=== PATIENT | female | born 1990 | race Caucasian/White ===

== ENCOUNTER 2023-06-21 13:48 | Outpatient (OUT) | payer OTHER, SELFPAY ==
--- NOTE | 2023-06-21 13:49 | US_ITS ---
[address] [address] Patient Name: NORY ALONZO MRN: [id number] date: 1990 Sex: F Assigned Patient Location: [facility] Current Patient Location: [facility] Accession/Order Number: [id number] Exam Date: 06/21/2023 13:50 Report Date: 06/21/2023 15:20 At the request of: KAVITHA LANG Procedure: US OB transvaginal EXAMINATION: US OB transvaginal HISTORY: MISSED MENSES COMPARISON: No relevant comparison available. FINDINGS: GESTATIONAL SAC: Present and normal appearing. YOLK SAC: Present and normal appearing. POLE: Present and normal appearing. CARDIAC: Present. UTERUS: Normal size and appearance. OVARIES: Right: Normal. Left: Not seen. CERVIX: 4.2 cm in length and closed. CUL-DE-SAC: Normal. OTHER: None. AGE BY LMP: 11 weeks 3 days DIANNE BY LMP: 01/07/2024 AGE BY US CRL: 10 weeks 2 days DIANNE BY US CRL: 01/15/2024 US/US OB transvaginal IMPRESSION: 1. Single live intrauterine . Electronically authenticated by: THERON NIEVES Date: 06/21/2023 15:20
== END 2023-06-21 13:49 | disposition home or self-care (01) ==
LOC: NOMS 13:48
PROVIDERS: Visit Provider Obstetrics & Gynecology
DX: Z34.91 Encounter for supervision of normal pregnancy, unspecified, first trimester (principal); Z3A.10 10 weeks gestation of pregnancy; N92.6 Irregular menstruation, unspecified
CPT/HCPCS: 76817

== ENCOUNTER 2023-06-27 12:08 | Outpatient (OUT) | payer OTHER, SELFPAY ==
[2023-06-27 12:52] LABS: Basophils Percent Auto 0.3 % (0.2-2.0); Eosinophils Absolute Auto 0.1 10^3/uL (0.0-0.7); Eosinophils Percent Auto 1.1 % (0.9-7.0); Hematocrit 34.6 % (36.0-48.0); Hemoglobin 11.9 g/dL (12.0-16.0); Immature Granulocytes Abs Auto 0.01 10^3/uL (0.00-0.03); Immature Granulocytes Pct Auto 0.2 % (0.0-0.5); Lymphocytes Absolute Auto 1.7 10^3/uL (1.2-3.8); Lymphocytes Percent Auto 27.9 % (20.5-60.0); Mean Corpuscular HGB Conc 34.4 g/dL (29.9-35.2); Mean Corpuscular Hemoglobin 30.6 pg (26.7-34.0); Mean Corpuscular Volume 88.9 fL (81.0-99.0); Mean Platelet Volume 10.6 fL (9.5-13.5); Monocytes Absolute Auto 0.4 10^3/uL (0.3-0.8); Monocytes Percent Auto 6.6 % (1.7-12.0); Neutrophils Percent Auto 63.9 % (43.0-75.0); Platelet Count 212 10^3/uL (150-450); Red Blood Count 3.89 10^6/uL (4.20-5.40); Red Cell Distribution Width 11.9 % (11.0-15.0); White Blood Count 6.2 10^3/uL (4.0-11.0)
[2023-06-27 13:21] LABS: Estimated Average Glucose 100 mg/dL; Glycohemoglobin A1C 5.1 % (4.5-6.2)
[2023-06-28 06:09] LABS: Rubella Antibodies, IgG 5.08 index (Immune >0.99)
[2023-06-28 08:12] LABS: HBsAg Screen Negative (Negative); HCV Ab Non Reactive (Non Reactive); HIV Ab/p24 Ag Screen Non Reactive (Non Reactive)
[2023-06-28 11:11] LABS: Rapid Plasma Reagin, Quant Non Reactive titer (NonRea<1:1)
== END 2023-06-27 12:09 | disposition home or self-care (01) ==
LOC: LAB 12:09
PROVIDERS: Visit Provider Obstetrics & Gynecology
DX: N92.6 Irregular menstruation, unspecified (principal)
CPT/HCPCS: 36415; 83036; 85025; 86592; 86762; 86803; 86850; 86900; 86901; 87086; 87340; 87389

== ENCOUNTER 2023-07-19 20:07 | Outpatient (REF) | payer OTHER, SELFPAY ==
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
[2023-07-24 13:12] LABS: Age Gdln ACOG Testing Note (.); HPV Aptima Negative (Negative); IGP, Aptima HPV, rfx 16/18,45 Note (.)
== END 2023-07-19 20:08 | disposition home or self-care (01) ==
LOC: LAB 20:07
PROVIDERS: Visit Provider Obstetrics & Gynecology
DX: Z01.419 Encounter for gynecological examination (general) (routine) without abnormal findings (principal)
CPT/HCPCS: 87624; G0145

== ENCOUNTER 2023-08-29 11:51 | Outpatient (OUT) | payer OTHER, SELFPAY | END 2023-08-29 11:52 | disposition home or self-care (01) | LOC: LAB 11:54 | PROVIDERS: Visit Provider Obstetrics & Gynecology | DX: Z34.92 Encounter for supervision of normal pregnancy, unspecified, second trimester (principal) | CPT/HCPCS: 36415; 82105 ==

== ENCOUNTER 2023-08-29 13:05 | Outpatient (OUT) | payer OTHER, SELFPAY ==
--- NOTE | 2023-08-29 13:07 | US_ITS ---
[address] [address] Patient Name: NORY ALONZO MRN: [id number] date: 1990 Sex: F Assigned Patient Location: [facility] Current Patient Location: [facility] Accession/Order Number: [id number] Exam Date: 08/29/2023 13:07 Report Date: 08/29/2023 14:15 At the request of: MELLO BURGER Procedure: US OB anatomy EXAMINATION: US OB anatomy, US OB cervical length HISTORY: ANATOMY COMPARISON: 06/21/2023 TECHNIQUE: Transabdominal sonographic examination was performed for obstetrical and evaluation. FINDINGS: Number: 1 Heart Rate: 143.0 bpm H.B. /min Amniotic Fluid Volume: Subjectively normal position: Variable Placental Location: POSTERIOR , placental edge is 4.3 cm from the cervical os Cervix Length: 5.3 cm , closed Normal anatomy: Lateral ventricles, cerebellum, posterior fossa, nose, lips, orbits, four-chamber heart, RVOT, LVOT, diaphragm, stomach, kidneys, abdominal cord insertion, bladder, umbilical arteries, three-vessel cord, spine, extremities BIOMETRY: BPD: 4.5 cm 19 weeks 4 days , 27% HC: 17.1 cm 19 weeks 5 days, 23% AC: 14.9 cm 20 weeks 1 days, 45% FL: 3.3 cm 20 weeks 2 days , 49% EFW:336.2 grams; 12 ounces, 46% FL/AC: 22.1 FL/BPD: 73.3 HC/AC: 1.2 GESTATIONAL AGE: Age by EDC: 20 weeks 1 days DIANNE by EDC: 01/15/2024 Age by current US: 20 weeks 0 days DIANNE by current US: 01/16/2024 US/US OB anatomy IMPRESSION: Normal anatomy scan Closed cervix measuring 5.3 cm in length *Reference: [employer] Practice Guideline for the performance of Obstetric Ultrasound Examinations, January 28, 2007. Electronically authenticated by: MANINDER BAZAN Date: 08/29/2023 14:15
--- NOTE | 2023-08-29 13:07 | US_ITS ---
[address] [address] Patient Name: NORY ALOZNO MRN: [id number] date: 1990 Sex: F Assigned Patient Location: [facility] Current Patient Location: [facility] Accession/Order Number: [id number] Exam Date: 08/29/2023 13:07 Report Date: 08/29/2023 14:15 At the request of: MELLO BURGER Procedure: US OB cervical length EXAMINATION: US OB anatomy, US OB cervical length HISTORY: ANATOMY COMPARISON: 06/21/2023 TECHNIQUE: Transabdominal sonographic examination was performed for obstetrical and evaluation. FINDINGS: Number: 1 Heart Rate: 143.0 bpm H.B. /min Amniotic Fluid Volume: Subjectively normal position: Variable Placental Location: POSTERIOR , placental edge is 4.3 cm from the cervical os Cervix Length: 5.3 cm , closed Normal anatomy: Lateral ventricles, cerebellum, posterior fossa, nose, lips, orbits, four-chamber heart, RVOT, LVOT, diaphragm, stomach, kidneys, abdominal cord insertion, bladder, umbilical arteries, three-vessel cord, spine, extremities BIOMETRY: BPD: 4.5 cm 19 weeks 4 days , 27% HC: 17.1 cm 19 weeks 5 days, 23% AC: 14.9 cm 20 weeks 1 days, 45% FL: 3.3 cm 20 weeks 2 days , 49% EFW:336.2 grams; 12 ounces, 46% FL/AC: 22.1 FL/BPD: 73.3 HC/AC: 1.2 GESTATIONAL AGE: Age by EDC: 20 weeks 1 days DIANNE by EDC: 01/15/2024 Age by current US: 20 weeks 0 days DIANNE by current US: 01/16/2024 US/US OB cervical length IMPRESSION: Normal anatomy scan Closed cervix measuring 5.3 cm in length *Reference: [employer] Practice Guideline for the performance of Obstetric Ultrasound Examinations, January 28, 2007. Electronically authenticated by: MANINDER BAZAN Date: 08/29/2023 14:15
== END 2023-08-29 13:06 | disposition home or self-care (01) ==
LOC: NOMS 13:05
PROVIDERS: Visit Provider Physician Assistant
DX: Z34.92 Encounter for supervision of normal pregnancy, unspecified, second trimester (principal); Z36.89 Encounter for other specified antenatal screening; Z3A.20 20 weeks gestation of pregnancy
CPT/HCPCS: 36415; 76805; 76817; 82105

== ENCOUNTER 2023-10-08 09:50 | Outpatient (OUT) | payer OTHER, SELFPAY ==
--- OUTSIDE RECORDS SUMMARY | 2023-10-08 10:03 | XMS_ITS | CCD ---
Author Organization [facility] Care Team Providers Care Electrical Engineering Intern Name Role Phone DANNIE ROSENBERG Primary Care Unavailable CURTIS HARRIS Attending Unavailable Unavailable Primary Care Provider KAVITHA Jeffers Attending Unavailable MELLO BURGER Attending Unavailable KAVITHA LANG Attending Unavailable Medications Current Medications Medication Drug Class(es) Dates [...] 03-22-2020 Coding Summary. CODING DATE: 03/22/2020 FINAL [facility] STATUS: Home (Routine DC) PAYOR: Self [...] Revised Date Saved: 03/22/2020 03:50 pm Normal [facility] SARS-CoV-2, NAAon 03-22-2020 SARS CORONAVIRUS 2 RNA:PRTHR:PT:RESPIRA TORY:ORD:PROBE.AMP.T AR Not Detected Not Detected [facility] Comment on above: Result Comment: This nucleic acid amplification test was developed and its performance characteristics determined by [facility]. Nucleic acid amplification tests include PCR and [...] detected) result in this assay. Performed at: [facility] [address], [place] [id number] MD Pawel Santillan Performed By: #### S ARS-CoV-2, VICTORINO #### [facility] [address] [place] [address] ED Note-Physicianon 03-21-20 ED Note-Physician Basic Information [...] ROSENBERG In 3 days 03/23/2020 EST [address] [place] [phone] Business (1) Additional Instructions: You should self quarantine [...] Cap-EC, 40 mg= 1 cap(s), Oral, Daily Berkeley 325 mg-5 mg oral tablet, See Instructions, PRN Percocet 325 mg-5 mg Tab, 1 to 2 tab(s), Oral, q4hr, PRN Allergies No Known Allergies Social History Alcohol Current, Beer, Wine, Liquor, 1-2 times per month, 03/20/2020 Substance Abuse Tobacco Lab Results No qualifying data available. Diagnostic Results No qualifying data available. Normal [facility] Comment on above: Result Comment: Elec tronically Signed By: Ben Vicente, Artem Suazo\.vipul\Date and Time Signed: 03/21/20 07:19 EST Consent for Treatmenton 03-01 Consent for Treatment [id number] 0CD:127 Normal [facility] Discharge Instructionson Discharge Instructions [id number] 0CD:127 Normal [facility] ED Clinical Summaryon 2019 ED Clinical Summary [place] [id number] ED Clinical Summary Person Information Name: NORY ALONZO [place] Age: 29 Years : 1990 Sex: Female Language: Bolivian PCP: Montrell ROSENBERG MD Marital Status: Single [...] 03/20/2020 11:06:22 03/20/2020 11:06:22 03/20/2020 11:06:22 ADDRESS: [address] [place] [id number] PHYS DOC NOTES: MEDICAL INFORMATION: Prescriptions Given: Medications to Continue with No Changes Other Medications acetaminophen-hydrocod one (Berkeley 325 mg-5 mg oral tablet) 1-2 tab(s) [...] Follow up: With: Address: When: Montrell ROSENBERG [address] [place] [address], [place] [phone] Business (1) In 3 days 03/23/2020 Comments: You should self quarantine until the coronavirus test is back and is negative. Return to the emergency room if you develop chest pain shortness of breath or any new symptoms. DIAGNOSIS: 1:Flu-like symptoms Normal [facility] ED Patient Education Noteon 03-20-2020 ED Patient [...] coughing. HOME CARE INSTRUCTIONS ? Only take pjci-ypg-xfnzqcf or prescription medicines for pain, discomfort, diarrhea, [...] Document Reviewed: 08/21/2011 ExitCare? Patient Information ?2015 Mobile Captain. This information is not intended to replace advice given to you by your health care provider. Make sure you discuss any questions you have with your health care provider. Normal [facility] ED Patient Summaryon 020 ED Patient Summary [place] [id number] Patient Discharge Instructions Person Information Name: NORY ALONZO Age: 29 Years Arrival Date: 03/20/2020 09:00:39 Discharge Diagnosis: 1:Flu-like symptoms Primary Care Physician: Montrell ROSENBERG MD Provider Information Primary Provider: Artem Contreras M.D. [employer]:None The exam and treatment you received in the Emergency Department were for an urgent problem and are not intended as complete care. It is important that you follow up with a doctor, nurse practitioner, or physician?s assistant plant controller for ongoing care. If your symptoms become worse or you do not improve as expected and you are unable to reach your usual health care provider, you should return to the Emergency Department. We are available 24 hours a day. NORY ALONZO has been given the following list of patient education materials, prescriptions and follow-up instructions: Follow-up Instructions: With: Address: When: Montrell ROSENBERG [address] [place], [place] [phone] Business (1) In 3 days 03/23/2020 Comments: [...] opioids can be used to help relieve zfvvcsre-ws-bfotgd pain and are often prescribed following a [...] be struggling with addiction, tell your health career development engineer and ask for guidance or call SAMHSA?S National Helpline at 5-941-330-HELP. v Source: [place] Department of Health and Human Services/Center for Disease Control & Prevention [facility] Medications Given: Medication Dose Route No medications found. Medication Information: Medications to Continue with No Changes Other Medications acetaminophen-hydrocod one (Berkeley 325 mg-5 mg oral tablet) 1-2 tab(s) [...] Information: Artur Victor Thank you for choosing [facility] Patient Education Materials: Viral Infections A [...] coughing. HOME CARE INSTRUCTIONS ? Only take ekee-szz-cpskjzr or prescription medicines for pain, discomfort, diarrhea, [...] Document Reviewed: 08/21/2011 ExitCare? Patient Information ?2014 Mobile Captain. This information is not intended to replace advice given to you by your health care provider. Make sure you discuss any questions you have with your health care provider. CHERI Rabago COURTNEY A , have received the following patient education materials/instructions and have verbalized understanding: Patient Education Materials: Viral Infections Follow-up Instructions: With: Address: When: Montrell ROSENBERG [address] [place] [phone] Business (1) In 3 days 03/23/2020 Comments: You should self quarantine until the coronavirus test is back and is negative. Return to the emergency room if you develop chest pain shortness of breath or any new symptoms. Patient Signature Date Clinician/Nurse Signature ___ Date 03/20/2020 11:06:24 Normal [facility] Otheron 12-13-2019 RIGHT SHOULDER 3 VIE WS [...] tissue calcification or degenerative changes are identified. [facility]- [place], Phase Eight No fracture or joint abnormality is identified in the right shoulder or right elbow. [facility], [place] Elia, pn Incoming Radiant Results From [facility] - 12/13/2019 11:10 AM EDT RIGHT SHOULDER [...] in the right shoulder or right elbow. [facility] [place], [place] Elia, Mhpn Incoming Radiant Results From [facility] - 12/13/2019 11:10 AM EDT LEFT ELBOW [...] in the left elbow or left forearm. [place] LEFT ELBOW 3 VIEWS A ND [...] or retained radiopaque foreign body is identified. [place] No fracture or joint abnormality is identified in the left elbow or left forearm. [place] XR ELBOW LEFT (MIN 3 VIEWS)o [...] Dick Torres MD 12/13/19 Final result Normal [facility] XR ELBOW RIGHT (MIN 3 VIEWS) [...] Dick Torres MD 12/13/19 Final result Normal [facility] XR RADIUS ULNA LEFT (2 VIEWS [...] Dick Torres MD 12/13/19 Final result Normal [facility] XR SHOULDER RIGHT (MIN 2 VIE [...] Dick Torres MD 12/13/19 Final result Normal [facility] Vital Signs Date Time Vital Sign Value Performing Clinician Nilsai magali 12-13-2019 09:35-0400 BMI (Body Mass Index) 31.07 kg/m2 [facility] [place] 12-13-2019 09:35-0400 Body Temperature 98.29 [degF] [place], [place] 12-13-2019 09:35-0400 Body weight 82.1 kg [place], [place] 12-13-2019 09:35-0400 BP Diastolic 80 mm[Hg] [place] 12-13-2019 09:35-0400 BP Systolic 133 mm[Hg] [place] 12-13-2019 09:35-0400 Height 162.6 cm [place] 12-13-2019 09:35-0400 Pulse (Heart Rate) 100 /min [place] 12-13-2019 09:35-0400 Pulse Oximetry 98 % [place] 12-13-2019 09:35-0400 Respiratory Rate 16 /min [place] Encounters Encounter Date Encounter Type Care Provider Facility Start: 09-17-2023 End: 09-17-2023 ambulatory KAVITHA RICKEY Not Available Start: 08-16-2023 End: 08-16-2023 ambulatory MELLO BURGER Not Available Start: 07-19-2023 End: 07-19-2023 ambulatory KAVITHA RICKEY Not Available Start: 06-21-2023 End: 06-21-2023 ambulatory KAVITHA RICKEY Not Available Start: 12-13-2019 End: 12-13-2019 Emergency department patient visit DANNIE ROSENBERG [facility] Start: 12-13-2019 End: 12-13-2019 Emergency department patient visit Curtis Harris Work Phone: [facility] ED Comment on above: Contusion of right s houlder, initial encounter (Primary Dx); Contusion of right elbow, initial encounter; Contusion of left elbow, initial encounter; Contusion of left forearm, initial encounter Procedures Date Procedure Procedure Detail Performing Clinician Start: 12-13-2019 Radex forearm 2 views V FELIX ROSENBERG Start: 12-13-2019 Radex elbow complete minimum 3 views DANNIE ROSENBERG Start: 12-13-2019 Radex shoulder compl ete minimum 2 views DANNIE ROSENBERG Start: 12-13-2019 Radex forearm 2 views J laura Harris Work Phone: Start: 12-13-2019 End: 12-13-2019 Radex elbow complete minimum 3 views Curtis Harris Work Phone: Start: 12-13-2019 Radex shoulder compl ete minimum 2 views Curtis Harris Work Phone: Plan of Treatment Date Care Activity Detail Author Start: 12-30-2019 Influenza vaccination Flu vaccine (# 1) [place] Start: 2013 Screening for malign ant neoplasm of cervix Cervical cancer screen [place] Start: 09-17-2011 DTaP/Tdap/Td vaccine (1 - Tdap) DTaP/Tdap/Td vaccine (1 - Tdap) [place] Start: 09-17-2007 HIV screening HIV screen [place], [place] Start: 1993 Varicella vaccine (1 of 2 - 2-dose childhood series) Varicella vaccine (1 of 2 - 2-dose childhood series) [place] Payers Date Payer Category Payer Private Health Insurance [id number] 2014 Unknown 1990 Unknown [id number] [id number] [id number] 1990 Unknown [id number] [id number] [id number] 1990 Unknown [id number] [id number] [id number] 1990 Unknown [id number] 2.16.84 [id number] 1990 Unknown [id number] [id number] [id number] Social History Date Type Detail Facility [facility]: 12-13-[facility] [place] Start: 12-13-2019 Tobacco use and exposure Never used [place] Start: 12-13-2019 Alcohol intake Ex-drinker (finding) [place] Sex Assigned At Not on file [place] Exposure to SARS-CoV -2 (event) Not sure [place] Summary Purpose Family History No Family History Records FoundNo Family History Records FoundNo Family History Records Found Advance Directives No Advanced Directives Records FoundDocuments on File Type Date Recorded 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 * Contusion (Bolivian) * Bruises (Bolivian) documented in this encounter Assessments Diagnosis Contusion of right shoulder, initial encounter Contusion of right elbow, initial encounter Contusion of left elbow, initial encounter Contusion of left forearm, initial encounter Additional Source Comments INFORMATION SOURCE (unrecogn ized section and content) DATE CREATED AUTHOR 12/13/2019 [facility]vat[facility] DATE CREATED AUTHOR AUTHOR'S ORGANIZ ATION 03/22/2020 [facility] DATE CREATED AUTHOR AUTHOR'S ORGANIZ ATION 09/19/2023 [facility] EPIC Reason for Visit (unrecogniz [...] BE BASED ON THE PRIMARY CLINICAL RECORDS. [employer] provides no warranty or guarantee of the accuracy or completeness of information in this document.
[2023-10-08 11:16] LABS: Basophils Percent Auto 0.3 % (0.2-2.0); Eosinophils Percent Auto 0.3 % (0.9-7.0); Hematocrit 31.1 % (36.0-48.0); Hemoglobin 10.7 g/dL (12.0-16.0); Immature Granulocytes Abs Auto 0.02 10^3/uL (0.00-0.03); Immature Granulocytes Pct Auto 0.3 % (0.0-0.5); Lymphocytes Absolute Auto 1.5 10^3/uL (1.2-3.8); Lymphocytes Percent Auto 25.7 % (20.5-60.0); Mean Corpuscular HGB Conc 34.4 g/dL (29.9-35.2); Mean Corpuscular Hemoglobin 30.6 pg (26.7-34.0); Mean Corpuscular Volume 88.9 fL (81.0-99.0); Mean Platelet Volume 10.2 fL (9.5-13.5); Monocytes Absolute Auto 0.3 10^3/uL (0.3-0.8); Monocytes Percent Auto 5.5 % (1.7-12.0); Neutrophils Percent Auto 67.9 % (43.0-75.0); Platelet Count 241 10^3/uL (150-450); Red Cell Distribution Width 12.8 % (11.0-15.0)
[2023-10-08 11:41] LABS: Glucose 1 Hour 136 mg/dL (<130)
== END 2023-10-08 09:51 | disposition home or self-care (01) ==
LOC: LAB 09:50
PROVIDERS: Visit Provider Obstetrics & Gynecology
DX: Z13.1 Encounter for screening for diabetes mellitus (principal)
CPT/HCPCS: 36415; 82950; 85025

== ENCOUNTER 2023-10-17 12:07 | Outpatient (OUT) | payer OTHER, SELFPAY ==
--- OUTSIDE RECORDS SUMMARY | 2023-10-17 12:18 | XMS_ITS ---
Patient Summarization (C-CDA 2.1 CCD) Created on: October 17, 2023 NORY ALONZO : 1990 Sex: Female Author Organization Sample organization Care Team Providers Care Horticultural Services Supervisor Name Role Phone DANNIE ROSENBERG Primary Care Unavailable CURTIS HARRIS Attending Unavailable Unavailable Primary Care Provider UnavailKAVITHA Covington Attending Unavailable MELLO BURGER Attending Unavailable KAVITHA LANG Attending Unavailable Encounters Encounter Date Encounter Type Care Provider Facility Start: 09-17-2023 End: 09-17-2023 ambulatory KAVITHA RICKEY Not Available Start: 08-16-2023 End: 08-16-2023 ambulatory MELLO BURGER Not Available Start: 07-19-2023 End: 07-19-2023 ambulatory KAVITHA RICKEY Not Available Start: 06-21-2023 End: 06-21-2023 ambulatory KAVITHA RICKEY Not Available Start: 12-13-2019 End: 12-13-2019 Emergency department patient visit DANNIE ROSENBERG [facility] Start: 12-13-2019 End: 12-13-2019 Emergency department patient visit Curtis Harris Work Phone: [facility] ED Comment on above: Contusion of right s houlder, initial encounter (Primary Dx); Contusion of right elbow, initial encounter; Contusion of left elbow, initial encounter; Contusion of left forearm, initial encounter Medications Current Medications Medication Drug Class(es) Dates [...] mL 0 04/24/2013 12/13/2019 Discontinued (LIST CLEANUP) Payers Date Payer Category Payer Private Health Insurance [id number] 2014 Unknown 1990 Unknown [id number] 2.16.84 [id number] 1990 Unknown [id number] 2.16.84 [id number] 1990 Unknown [id number] 2.16.84 [id number] 1990 Unknown [id number] 2.16.84 [id number] 1990 Unknown [id number] 2.16.84 [id number] Plan of Treatment Date Care Activity Detail Author Start: 12-30-2019 Influenza vaccination Flu vaccine (# 1) [place], [place] Start: 2013 Screening for malign ant neoplasm of cervix Cervical cancer screen [place], [place] Start: 09-17-2011 DTaP/Tdap/Td vaccine (1 - Tdap) DTaP/Tdap/Td vaccine (1 - Tdap) [place] Start: 09-17-2007 HIV screening HIV screen [place], [place] Start: 1993 Varicella vaccine (1 of 2 - 2-dose childhood series) Varicella vaccine (1 of 2 - 2-dose childhood series) [place] Problems Problem Classification Problem Date Documented Da [...] Translations: [Contusion of left forearm, initial encounter] Procedures Date Procedure Procedure Detail Performing Clinician [...] minimum 2 views Curtis Harris Work Phone: Results Test Name Value Interpretation Reference Range Facil ity Coding Summary.on 03-22-2020 Coding Summary. CODING DATE: 03/22/2020 FINAL [facility] STATUS: Home (Routine DC) PAYOR: Self [...] Revised Date Saved: 03/22/2020 03:50 pm Normal [facility] SARS-CoV-2, NAAon 03-22-2020 SARS CORONAVIRUS 2 RNA:PRTHR:PT:RESPIRA TORY:ORD:PROBE.AMP.T AR Not Detected Not Detected [facility] Comment on above: Result Comment: This nucleic acid amplification test was developed and its performance characteristics determined by [employer]. Nucleic acid amplification tests include PCR and [...] detected) result in this assay. Performed at: [facility] [id number] [facility] [place] [id number] MD Pawel Santillan Performed By: #### S ARS-CoV-2, VICTORINO #### [facility] [address] [place] [address] ED Note-Physicianon 03-21-20 ED Note-Physician Basic Information Time Seen: eBn Vicente, [facility] 03/20/2020 09:24 Chief Complaint worked with a [...] prescription medications Follow-up With When Contact Information Megaishaannelson ROSENBERG In 3 days 03/23/2020 EST [address] [id number] Business (1) Additional Instructions: You should self [...] Cap-EC, 40 mg= 1 cap(s), Oral, Daily [place] 325 mg-5 mg oral tablet, See Instructions, PRN Percocet 325 mg-5 mg Tab, 1 to 2 tab(s), Oral, q4hr, PRN Allergies No Known Allergies Social History Alcohol Current, Beer, Wine, Liquor, 1-2 times per month, 03/20/2020 Substance Abuse Tobacco Lab Results No qualifying data available. Diagnostic Results No qualifying data available. Normal [facility] Comment on above: Result Comment: Elec tronically Signed By: Ben Vicente, Artem Suazo\.br\Date and Time Signed: 03/21/20 07:19 EST Consent for Treatmenton 03-01 Consent for Treatment [id number] 0CD:127 [facility] Discharge Instructionson Discharge Instructions [id number] 0CD:127 [facility] ED Clinical Summaryon 2019 ED Clinical Summary [place] [id number] ED Clinical Summary Person Information Name: NORY ALONZO Margot/[facility] Age: 29 Years : 1990 Sex: Female Language: [place] PCP: Montrell ROSENBERG MD Marital Status: Single [...] 03/20/2020 11:06:22 03/20/2020 11:06:22 03/20/2020 11:06:22 ADDRESS: [address] [place] [id number] [facility] DOC NOTES: MEDICAL INFORMATION: Prescriptions Given: Medications to Continue with No Changes Other Medications acetaminophen-hydrocod one (Day[place] 325 mg-5 mg oral tablet) 1-2 tab(s) [...] Follow up: With: Address: When: Montrell ROSENBERG [address] [place] [address], [place] [place] [address] Business (1) In 3 days 03/23/2020 Comments: You should self quarantine until the coronavirus test is back and is negative. Return to the emergency room if you develop chest pain shortness of breath or any new symptoms. DIAGNOSIS: 1:Flu-like symptoms Normal [facility] ED Patient Education Noteon 03-20-2020 ED [...] coughing. HOME CARE INSTRUCTIONS ? Only take pjpm-drd-yfywzdk or prescription medicines for pain, discomfort, diarrhea, [...] Document Reviewed: 08/21/2011 ExitCare? Patient Information ?2015 [email or web address]. This information is not intended to replace advice given to you by your health care provider. Make sure you discuss any questions you have with your health care provider. Normal [facility] ED Patient Summaryon 020 ED Patient Summary [address] [address] Patient Discharge Instructions Person Information Name: NORY ALONZO Age: 29 Years Arrival Date: 03/20/2020 09:00:39 Discharge Diagnosis: 1:Flu-like symptoms Primary Care Physician: Montrell ROSENBERG MD Provider Information Primary Provider: Artem Contreras M.D. Advanced Inspector Technician:None The exam and treatment you received in the Emergency Department were for an urgent problem and are not intended as complete care. It is important that you follow up with a doctor, nurse practitioner, or physician?s lead recreation assistant for ongoing care. If your symptoms [...] Follow-up Instructions: With: Address: When: Montrell ROSENBERG [address] [place] [id number] Business (1) In 3 days 03/23/2020 [...] opioids can be used to help relieve acctzwyy-tw-kybmhj pain and are often prescribed following a [...] be struggling with addiction, tell your health neonatal intensive care nurse and ask for guidance or call [facility]?S National Helpline at 2-361-909-ZUSU. b Source: [place] Department of Health and Human Services/Center for Disease Control & Prevention [facility] [place] [facility] Medications Given: Medication Dose Route No medications found. Medication Information: Medications to Continue with No Changes Other Medications acetaminophen-hydrocod one ([place] 325 mg-5 mg oral tablet) 1-2 tab(s) [...] Information: Artur Victor Thank you for choosing [facility] Patient Education Materials: Viral Infections A viral [...] coughing. HOME CARE INSTRUCTIONS ? Only take rtpa-bvh-ouuizzo or prescription medicines for pain, discomfort, diarrhea, [...] Document Reviewed: 08/21/2011 ExitCare? Patient Information ?2014 [email or web address]. This information is not intended to replace advice given to you by your health care provider. Make sure you discuss any questions you have with your health care provider. CHERI Rabago COURTNEY A , have received the following patient education materials/instructions and have verbalized understanding: Patient Education Materials: Viral Infections Follow-up Instructions: With: Address: When: Montrell ROSENBERG [address] [place], [place] [phone] Business (1) In 3 days 03/23/2020 Comments: You should self quarantine until the coronavirus test is back and is negative. Return to the emergency room if you develop chest pain shortness of breath or any new symptoms. Patient Signature Date Clinician/Nurse Signature ___ Date 03/20/2020 11:06:24 Normal [facility] Otheron 12-13-2019 Elia, Mhpn Incoming Radiant Results From [facility] - 12/13/2019 11:10 AM EDT LEFT ELBOW [...] in the left elbow or left forearm. [place] LEFT ELBOW 3 VIEWS A ND [...] or retained radiopaque foreign body is identified. [place] No fracture or joint abnormality is identified in the left elbow or left forearm. [place] RIGHT SHOULDER 3 VIE WS AND RIGHT [...] tissue calcification or degenerative changes are identified. [place] No fracture or joint abnormality is identified in the right shoulder or right elbow. [place] Elia, [facility] Incoming Radiant Results From [facility] - 12/13/2019 11:10 AM EDT RIGHT SHOULDER [...] in the right shoulder or right elbow. [place] XR ELBOW LEFT (MIN 3 VIEWS)o [...] Dick Torres MD 12/13/19 Final result Normal [facility] XR ELBOW RIGHT (MIN 3 VIEWS) on [...] Dick Torres MD 12/13/19 Final result Normal [facility] XR RADIUS ULNA LEFT (2 VIEWS )on [...] Dick Torres MD 12/13/19 Final result Normal [facility] XR SHOULDER RIGHT (MIN 2 VIE WS)on [...] Dick Torres MD 12/13/19 Final result Normal [facility] Social History Date Type Detail Facility Start: 12-13-2019 Tobacco smoking stat RUSTIS Never smoker [place] Start: 12-13-2019 Tobacco use and exposure Never used [place] Start: 12-13-2019 Alcohol intake Ex-drinker (finding) [place] Sex Assigned At Not on file [place] Exposure to SARS-CoV -2 (event) Not sure [place] Vital Signs Date Time Vital Sign Value Performing Clinician Faci lity 12-13-2019 09:35-0400 BMI (Body Mass Index) 31.07 [facility] [place] [place] 12-13-2019 09:35-0400 Body Temperature 98.29 [degF] [place], [place] 12-13-2019 09:35-0400 Body weight 82.1 kg [place], [place] 12-13-2019 09:35-0400 BP Diastolic 80 mm[Hg] [place] 12-13-2019 09:35-0400 BP Systolic 133 mm[Hg] [facility] 12-13-2019 09:35-0400 Height 162.6 cm [facility] 12-13-2019 09:35-0400 Pulse (Heart Rate) 100 /min [facility] 12-13-2019 09:35-0400 Pulse Oximetry 98 % [facility] 12-13-2019 09:35-0400 Respiratory Rate 16 /min [facility] Purpose Family History No Family History Records FoundNo Family History Records FoundNo Family History Records Found Advance Directives No Advanced Directives Records FoundDocuments on File Type Date 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 * Contusion ([place]) * Bruises ([place]) documented in this encounter Assessments Diagnosis Contusion of right shoulder, initial encounter Contusion of right elbow, initial encounter Contusion of left elbow, initial encounter Contusion of left forearm, initial encounter Additional Source Comments INFORMATION SOURCE (unrecogn ized section and content) DATE CREATED AUTHOR 12/13/2019 Tonya lo DATE CREATED AUTHOR AUTHOR'S ORGANIZ ATION 03/22/2020 [facility] DATE CREATED AUTHOR AUTHOR'S ORGANIZ ATION 09/19/2023 [facility] EPIC Reason for Visit (unrecogniz [...] BE BASED ON THE PRIMARY CLINICAL RECORDS. [employer] provides no warranty or guarantee of the accuracy or completeness of information in this document.
[2023-10-17 12:42] LABS: Glucose Fasting 82 mg/dL (<95)
[2023-10-17 14:47] LABS: Glucose 1 Hour 196 mg/dL (<180)
[2023-10-17 16:03] LABS: Glucose 2 Hour 178 mg/dL (<155)
[2023-10-17 16:12] LABS: Glucose 3 Hour 126 mg/dL (<140)
== END 2023-10-17 12:08 | disposition home or self-care (01) ==
LOC: LAB 12:07
PROVIDERS: Visit Provider Obstetrics & Gynecology
DX: R73.09 Other abnormal glucose (principal)
CPT/HCPCS: 36415; 82951; 82952

== ENCOUNTER 2023-10-24 10:46 | Outpatient (OUT) | payer OTHER, SELFPAY ==
--- OUTSIDE RECORDS SUMMARY | 2023-10-24 11:06 | XMS_ITS ---
Patient Summarization (C-CDA 2.1 CCD) Created on: October 24, 2023 NORY ALONZO : 1990 Sex: Female Author Organization Sample organization Care Team Providers Care Kettle Operator Name Role Phone DANNIE ROSENBERG Primary Care Unavailable CURTIS HARRIS Attending Unavailable Unavailable Primary Care Provider UnavailKAVITHA Covington Attending Unavailable MELLO BURGER Attending Unavailable RICKEY, KAVITHA Attending Unavailable RICKEYKAVITHA FERNANDEZ Attending Unavailable Encounters Encounter Date Encounter Type Care Provider Facility Start: 10-17-2023 End: 10-17-2023 ambulatory KAVITHA RICKEY Not Available Start: 09-17-2023 End: 09-17-2023 ambulatory KAVITHA RICKEY Not Available Start: 08-16-2023 End: 08-16-2023 ambulatory MELLO BURGER Not Available Start: 07-19-2023 End: 07-19-2023 ambulatory KAVITHA RICKEY Not Available Start: 06-21-2023 End: 06-21-2023 ambulatory KAVITHA RICKEY Not Available Start: 12-13-2019 End: 12-13-2019 Emergency department patient visit DANNIE ROSENBERG [facility] Start: 12-13-2019 End: 12-13-2019 Emergency department patient visit Curtis Harris Work Phone: [facility] ED Comment on above: Contusion of [...] Payer Category Payer Private Health Insurance [id number] 2014 Unknown 1990 Unknown [id number] 2.16.84 [id number] 1990 Unknown [id number] 2.16.84 [id number] 1990 Unknown [id number] 2.16.84 [id number] 1990 Unknown [id number] 2.16.84 [id number] 1990 Unknown [id number] 2.16.84 [id number] 1990 Unknown [id number] 2.16.84 [id number] Plan of Treatment Date Care Activity Detail Author Start: 12-30-2019 Influenza vaccination Flu vaccine (# 1) [place], [place] Start: 2013 Screening for malign ant neoplasm of cervix Cervical cancer screen [place], [place] Start: 09-17-2011 DTaP/Tdap/Td vaccine (1 - Tdap) DTaP/Tdap/Td vaccine (1 - Tdap) [place] Start: 09-17-2007 HIV screening HIV screen [place], [place] Start: 1993 Varicella vaccine (1 of 2 - 2-dose childhood series) Varicella vaccine (1 of 2 - 2-dose childhood series) [place], [place] Problems Problem Classification Problem Date Documented [...] shoulder compl ete minimum 2 views DANNIE ROSENEBRG Start: 12-13-2019 Radex forearm 2 views J laura Harris Work Phone: Start: 12-13-2019 End: 12-13-2019 Radex elbow complete minimum 3 views Curtis Harris Work Phone: Start: 12-13-2019 Radex shoulder compl ete minimum 2 views Curtis Harris Work Phone: Results Test Name Value Interpretation Reference Range Facil ity Coding Summary.on 03-22-2020 Coding Summary. CODING DATE: 03/22/2020 [facility] STATUS: Home (Routine DC) PAYOR: Self [...] Revised Date Saved: 03/22/2020 03:50 pm Normal [facility] SARS-CoV-2, NAAon 03-22-2020 SARS CORONAVIRUS 2 RNA:PRTHR:PT:RESPIRA TORY:ORD:PROBE.AMP.T AR Not Detected Not Detected [facility] Comment on above: Result Comment: This nucleic acid amplification test was developed and its performance characteristics determined by [employer]. Nucleic acid amplification tests include PCR and [...] detected) result in this assay. Performed at: [facility] [address] [facility] [place] [id number] MD Pawel Santillan Performed By: #### S ARS-CoV-2, VICTORINO #### [facility] [address] [place] [address] ED Note-Physicianon 03-21-20 ED Note-Physician Basic Information Time Seen: Ben Vicente, [facility] 03/20/2020 09:24 Chief Complaint worked with [...] ROSENBERG In 3 days 03/23/2020 EST [address] [place] [phone] Business (1) Additional Instructions: You should self [...] Cap-EC, 40 mg= 1 cap(s), Oral, Daily [place] 325 mg-5 mg oral tablet, See Instructions, PRN Percocet 325 mg-5 mg Tab, 1 to 2 tab(s), Oral, q4hr, PRN Allergies No Known Allergies Social History Alcohol Current, Beer, Wine, Liquor, 1-2 times per month, 03/20/2020 Substance Abuse Tobacco Lab Results No qualifying data available. Diagnostic Results No qualifying data available. Normal [facility] Comment on above: Result Comment: Elec tronically Signed By: Ben Vicente, Atrem Suazo\.br\Date and Time Signed: 03/21/20 07:19 EST Consent for Treatmenton 03-01 Consent for Treatment [id number] 0CD:127 Normal [facility] Discharge Instructionson Discharge Instructions [id number] 0CD:127 Normal [facility] ED Clinical Summaryon 2019 ED Clinical Summary [place] [id number] ED Clinical Summary Person Information Name: NORY ALONZO/[facility] Age: 29 Years : 1990 Sex: Female Language: Tanzanian PCP: Montrell ROSENBERG MD Marital Status: Single [...] 03/20/2020 11:06:22 03/20/2020 11:06:22 03/20/2020 11:06:22 ADDRESS: [address] [place] [address] [facility] DOC NOTES: MEDICAL INFORMATION: Prescriptions Given: Medications to Continue with No Changes Other Medications acetaminophen-hydrocod one ([place] 325 mg-5 mg oral tablet) 1-2 tab(s) [...] Follow up: With: Address: When: Montrell ROSENBERG [address] [place] [address], [facility] [place] [phone] Business (1) In 3 days 03/23/2020 Comments: You should self quarantine until the coronavirus test is back and is negative. Return to the emergency room if you develop chest pain shortness of breath or any new symptoms. DIAGNOSIS: 1:Flu-like symptoms Normal [facility] ED Patient Education Noteon 03-20-2020 ED [...] coughing. HOME CARE INSTRUCTIONS ? Only take hcbs-tqu-ptnczmp or prescription medicines for pain, discomfort, diarrhea, [...] Document Reviewed: 08/21/2011 ExitCare? Patient Information ?2015 [employer]. This information is not intended to replace advice given to you by your health care provider. Make sure you discuss any questions you have with your health care provider. Normal [facility] ED Patient Summaryon 020 ED Patient Summary [place] [id number] Patient Discharge Instructions Person Information Name: NORY ALONZO Age: 29 Years Arrival Date: 03/20/2020 09:00:39 Discharge Diagnosis: 1:Flu-like symptoms Primary Care Physician: Montrell ROSENBERG MD Provider Information Primary Provider: rAtem Contreras M.D. Advanced Scalp Treatment Specialist:None The exam and treatment you received in the Emergency Department were for an urgent problem and are not intended as complete care. It is important that you follow up with a doctor, nurse practitioner, or physician?s group fitness assistant department head for ongoing care. If your symptoms become worse or you do not improve as expected and you are unable to reach your usual health care provider, you should return to the Emergency Department. We are available 24 hours a day. NORY ALONZO has been given the following list of patient education materials, prescriptions and follow-up instructions: Follow-up Instructions: With: Address: When: Montrell ROSENBERG [address] [place] [address] Business (1) In 3 days 03/23/2020 Comments: [...] opioids can be used to help relieve gcwuzedf-oi-zucbsm pain and are often prescribed following a [...] be struggling with addiction, tell your health acute care registered nurse and ask for guidance or call [facility]?S National Helpline at 8-107-963-MFOW. b Source: [place] Department of Health and Human Services/Center for Disease Control & Prevention [facility] Medications Given: Medication Dose Route No medications found. Medication Information: Medications to Continue with No Changes Other Medications acetaminophen-hydrocod one ([place] 325 mg-5 mg oral tablet) 1-2 tab(s) [...] Information: Artur Victor Thank you for choosing [facility] Patient Education Materials: Viral Infections A [...] coughing. HOME CARE INSTRUCTIONS ? Only take urvn-ypb-ffpjrwu or prescription medicines for pain, discomfort, diarrhea, [...] Document Reviewed: 08/21/2011 ExitCare? Patient Information ?2014 [employer]. This information is not intended to replace advice given to you by your health care provider. Make sure you discuss any questions you have with your health care provider. CHERI Rabago COURTNEY A , have received the following patient education materials/instructions and have verbalized understanding: Patient Education Materials: Viral Infections Follow-up Instructions: With: Address: When: Montrell ROSENBERG [address] [place] [address], [place] [phone] Business (1) In 3 days 03/23/2020 Comments: You should self quarantine until the coronavirus test is back and is negative. Return to the emergency room if you develop chest pain shortness of breath or any new symptoms. Patient Signature Date Clinician/Nurse Signature ___ Date 03/20/2020 11:06:24 Normal [facility] Otheron 12-13-2019 Elia, [facility] Incoming Radiant Results From [employer] - 12/13/2019 11:10 AM EDT LEFT ELBOW [...] in the left elbow or left forearm. [place], [place] LEFT ELBOW 3 VIEWS A ND [...] or retained radiopaque foreign body is identified. [place] No fracture or joint abnormality is identified in the left elbow or left forearm. [place] RIGHT SHOULDER 3 VIE WS AND [...] tissue calcification or degenerative changes are identified. [place] No fracture or joint abnormality is identified in the right shoulder or right elbow. [place], [place] Elia, [facility] Incoming Radiant Results From [employer] - 12/13/2019 11:10 AM EDT RIGHT SHOULDER [...] in the right shoulder or right elbow. [facility]- [place], [place] XR ELBOW LEFT (MIN 3 VIEWS)o [...] Dick Torres MD 12/13/[address] [facility] XR ELBOW RIGHT (MIN 3 VIEWS) [...] Dick Torres MD 12/13/[address] [facility] XR RADIUS ULNA LEFT (2 VIEWS [...] Dick Torres MD 12/13/[address] [facility] XR SHOULDER RIGHT (MIN 2 VIE [...] by: Dick Torres MD 12/13/19 Final result [facility] Social History Date Type Detail Facility Start: 12-13-2019 Tobacco smoking stat [facility] Never smoker [place], [place] Start: 12-13-2019 Tobacco use and exposure Never used [place], [place] Start: 12-13-2019 Alcohol intake Ex-drinker (finding) [place] Sex Assigned At Not on file [place] Exposure to SARS-CoV -2 (event) Not sure [place] Vital Signs Date Time Vital Sign Value Performing Clinician Faci lity 12-13-2019 09:35-0400 BMI (Body Mass Index) 31.07 kg/m2 [facility] [place] 12-13-2019 09:35-0400 Body Temperature 98.29 [degF] Curtis [place] 12-13-2019 09:35-0400 Body weight 82.1 kg Curtis [place] 12-13-2019 09:35-0400 BP Diastolic 80 mm[Hg] [facility] [place] 12-13-2019 09:35-0400 BP Systolic 133 mm[Hg] 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 * Contusion (Tanzanian) * Bruises (Tanzanian) documented in this encounter Assessments Diagnosis Contusion of right shoulder, initial encounter Contusion of right elbow, initial encounter Contusion of left elbow, initial encounter Contusion of left forearm, initial encounter Additional Source Comments INFORMATION SOURCE (unrecogn ized section and content) DATE CREATED AUTHOR 12/13/2019 Tonya lo DATE CREATED AUTHOR AUTHOR'S ORGANIZ ATION 03/22/2020 [facility] DATE CREATED AUTHOR AUTHOR'S ORGANIZ ATION 10/19/2023 [facility] EPIC Reason for Visit [...] BE BASED ON THE PRIMARY CLINICAL RECORDS. [facility] [employer] [facility]. provides no warranty or guarantee of the accuracy or completeness of information in this document.
== END 2023-10-24 10:47 | disposition home or self-care (01) ==
PROVIDERS: Visit Provider Obstetrics & Gynecology
DX: O24.419 Gestational diabetes mellitus in pregnancy, unspecified control (principal)

== ENCOUNTER 2023-11-21 13:43 | Outpatient (OUT) | payer OTHER, SELFPAY ==
--- NOTE | 2023-11-21 13:45 | US_ITS ---
[address] [address] Patient Name: NORY ALONZO MRN: [id number] date: 1990 Sex: F Assigned Patient Location: [facility] Current Patient Location: [facility] Accession/Order Number: [id number] Exam Date: 11/21/2023 13:45 Report Date: 11/21/2023 15:01 At the request of: KAVITHA LANG Procedure: US OB growth EXAMINATION: US OB growth HISTORY: GESTATONAL DIABETES COMPARISON: No relevant comparison available. FINDINGS: Heart Rate: 138 bpm Amniotic Fluid Volume: 15.0 cm. Largest fluid pocket 4.3 cm Number: 1 Position: Cephalic presentation, longitudinal lie BIOMETRY: BPD: 8.35 cm; 33 weeks 4 days; 82.20 % HC: 30.41 cm; 33 weeks 6 days; 58.30 % AC: 29.49 cm; 33 weeks 3 days; 84.30 % FL: 6.48 cm; 33 weeks 3 days; 72.30 % EFW: 2197.28 g; 81.90 %, 4 lbs. 14 oz. FL/AC: 21.97 FL/BPD: 77.60 HC/AC: 1.03 GESTATIONAL AGE: Age by EDC: 33 weeks 1 day DIANNE by EDC: 2024-01-15 Age by US: 33 weeks 4 days DIANNE by US: 2024-01-05 US/US OB growth IMPRESSION: Normal interval growth Electronically authenticated by: MANINDER BAZAN Date: 11/21/2023 15:01
== END 2023-11-21 13:44 | disposition home or self-care (01) ==
LOC: NOMS 13:43
PROVIDERS: Visit Provider Obstetrics & Gynecology
DX: O24.419 Gestational diabetes mellitus in pregnancy, unspecified control (principal); Z3A.33 33 weeks gestation of pregnancy
CPT/HCPCS: 76816

== ENCOUNTER 2023-12-19 12:44 | Outpatient (OUT) | payer OTHER, SELFPAY ==
--- NOTE | 2023-12-19 12:45 | US_ITS ---
[address] [address] Patient Name: NORY ALONZO MRN: [id number] date: 1990 Sex: F Assigned Patient Location: [facility] Current Patient Location: [facility] Accession/Order Number: [id number] Exam Date: 12/19/2023 12:46 Report Date: 12/19/2023 15:43 At the request of: KAVITHA LANG Procedure: US OB growth EXAMINATION: US OB growth HISTORY: GESTATIONAL DIABETES COMPARISON: ULTRASOUND OB GROWTH 11/21/2023 FINDINGS: Heart Rate: 149 bpm Amniotic Fluid Volume: 13.2 cm; normal range Number: 1 Position: cephalic BIOMETRY: BPD: 9.39 cm; 38 weeks 2 days; 96.20 % HC: 32.83 cm; 37 weeks 2 days; 48.30 % AC: 34.83 cm; 38 weeks 5 days; 97 % FL: 7.13 cm; 36 weeks 4 days; 56.40 % EFW: 3404.49 g; 92.80 % FL/AC: 20.47 FL/BPD: 75.93 HC/AC: 0.94 GESTATIONAL AGE: Age by EDC: 36 weeks 1 day DIANNE by EDC: 2024-01-15 Age by US: 37 weeks 5 days DIANNE by US: 2024-01-04 US/US OB growth IMPRESSION: 1. Single live intrauterine with growth detailed above. 2. Abdominal circumference is greater than 97th percentile. Biparietal diameter is 96th percentile. 3. Slightly limited evaluation and head measurements due to low position of the head within the pelvis. Electronically authenticated by: THERON NIEVES Date: 12/19/2023 15:43
--- OUTSIDE RECORDS SUMMARY | 2023-12-19 12:57 | XMS_ITS | CCD ---
Author Organization [facility] Care Team Providers Care Solvent Mixer Name Role Phone DANNIE ROSENBERG Primary Care Unavailable CURTIS ATKINS Attending Unavailable Unavailable Primary Care Provider UnavailKAVITHA Covington Attending Unavailable MELLO BURGER Attending Unavailable KAVITHA LANG Attending Unavailable KAVITHA LANG Attending Unavailable KAVITHA LANG Attending Unavailable MELLO BURGER Attending Unavailable MELLO BURGER Attending Unavailable Medications Current Medications Medication Drug [...] 03-22-2020 Coding Summary. CODING DATE: 03/22/2020 FINAL [facility] STATUS: Home (Routine DC) PAYOR: Self [...] Revised Date Saved: 03/22/2020 03:50 pm Normal [facility] SARS-CoV-2, NAAon 03-22-2020 SARS CORONAVIRUS 2 RNA:PRTHR:PT:RESPIRA TORY:ORD:PROBE.AMP.T AR Not Detected Not Detected [facility] Comment on above: Result Comment: This nucleic acid amplification test was developed and its performance characteristics determined by [employer]. Nucleic acid amplification tests include PCR and [...] detected) result in this assay. Performed at: [facility] [address] [facility] [place] [id number] MD Pawel Santillan Performed By: #### S ARS-CoV-2, VICTORINO #### Phan [facility] [address] [place] [address] ED Note-Physicianon 03-21-20 ED Note-Physician Basic Information [...] prescription medications Follow-up With When Contact Information Josephnelson CHET In 3 days 03/23/2020 EST [address] [place] [id number] [facility] (1) Additional Instructions: You should [...] Cap-EC, 40 mg= 1 cap(s), Oral, Daily Axtell 325 mg-5 mg oral tablet, See Instructions, PRN Percocet 325 mg-5 mg Tab, 1 to 2 tab(s), Oral, q4hr, PRN Allergies No Known Allergies Social History Alcohol Current, Beer, Wine, Liquor, 1-2 times per month, 03/20/2020 Substance Abuse Tobacco Lab Results No qualifying data available. Diagnostic Results No qualifying data available. Normal [facility] Comment on above: Result Comment: Elec tronically Signed By: Ben Vicente, Artem Suazo\.vipul\Date and Time Signed: 03/21/20 07:19 EST Consent for Treatmenton 03-01 Consent for Treatment [id number] 0CD:127 Normal [facility] Discharge Instructionson Discharge Instructions [id number] 0CD:127 Normal [facility] ED Clinical Summaryon 2019 ED Clinical Summary [place] [id number] ED Clinical Summary Person Information Name: NORY ALONZO/[facility] Age: 29 Years : 1990 Sex: Female Language: Zimbabwean PCP: Montrell ROSENBERG MD Marital Status: Single [...] 03/20/2020 11:06:22 03/20/2020 11:06:22 03/20/2020 11:06:22 ADDRESS: [address] [place] [id number] [facility] DOC NOTES: MEDICAL INFORMATION: Prescriptions Given: Medications to Continue with No Changes Other Medications acetaminophen-hydrocod one (Axtell 325 mg-5 mg oral tablet) 1-2 tab(s) [...] Follow up: With: Address: When: Montrell ROSENBERG [address] [place] [address] Business (1) In 3 days 03/23/2020 Comments: You should self quarantine until the coronavirus test is back and is negative. Return to the emergency room if you develop chest pain shortness of breath or any new symptoms. DIAGNOSIS: 1:Flu-like symptoms Normal [facility] ED Patient Education Noteon 03-20-2020 ED [...] coughing. HOME CARE INSTRUCTIONS ? Only take usqf-ina-rhqxsli or prescription medicines for pain, discomfort, diarrhea, [...] Document Reviewed: 08/21/2011 ExitCare? Patient Information ?2014 [email or web address], [employer]. This information is not intended to replace advice given to you by your health care provider. Make sure you discuss any questions you have with your health care provider. Normal [facility] ED Patient Summaryon 020 ED Patient Summary [place] [id number] Patient Discharge Instructions Person Information Name: NORY ALONZO Age: 29 Years Arrival Date: 03/20/2020 09:00:39 Discharge Diagnosis: 1:Flu-like symptoms Primary Care Physician: CHET CUTLER, Montrell Provider Information Primary Provider: Artem Contreras M.D. Advanced Assembler Fitter:None The exam and treatment you received in the Emergency Department were for an urgent problem and are not intended as complete care. It is important that you follow up with a doctor, nurse practitioner, or physician?s billing and accounting staff assistant for ongoing care. If your symptoms become worse or you do not improve as expected and you are unable to reach your usual health care provider, you should return to the Emergency Department. We are available 24 hours a day. NORY ALONZO has been given the following list of patient education materials, prescriptions and follow-up instructions: Follow-up Instructions: With: Address: When: Megabrigitte CHET [address] [place] [address] Business (1) In 3 days 03/23/2020 [...] opioids can be used to help relieve ovrybrng-oz-robvrw pain and are often prescribed following a [...] be struggling with addiction, tell your health skin care therapist and ask for guidance or call [facility]?S National Helpline at 0-438-737-KUNT. p Source: US Department of Health and Human Services/Center for Disease Control & Prevention [facility] Medications Given: Medication Dose Route No medications found. Medication Information: Medications to Continue with No Changes Other Medications acetaminophen-hydrocod one (Axtell 325 mg-5 mg oral tablet) 1-2 tab(s) [...] Information: Artur Victor [facility] Patient Education Materials: Viral Infections A [...] coughing. HOME CARE INSTRUCTIONS ? Only take gngr-zhk-gzrigyp or prescription medicines for pain, discomfort, diarrhea, [...] Document Reviewed: 08/21/2011 ExitCare? Patient Information ?2015 [employer]. This information is not intended to replace advice given to you by your health care provider. Make sure you discuss any questions you have with your health care provider. CHERI Rabago COURTNEY A , have received the following patient education materials/instructions and have verbalized understanding: Patient Education Materials: Viral Infections Follow-up Instructions: With: Address: When: Megaishaannelson ROSENBERG [address] [place] [address], [place] [address] Business (1) In 3 days 03/23/2020 Comments: You should self quarantine until the coronavirus test is back and is negative. Return to the emergency room if you develop chest pain shortness of breath or any new symptoms. Patient Signature Date Clinician/Nurse Signature ___ Date 03/20/2020 11:06:24 Normal [facility] Otheron 12-13-2019 RIGHT SHOULDER 3 VIE [...] tissue calcification or degenerative changes are identified. [employer] [facility] [place] No fracture or joint abnormality is identified in the right shoulder or right elbow. [employer] [place] Elia, pn Incoming Radiant Results From [employer] - 12/13/2019 11:10 AM EDT RIGHT SHOULDER [...] in the right shoulder or right elbow. [facility], [place] Elia, pn Incoming Radiant Results From [employer] - 12/13/2019 11:10 AM EDT LEFT ELBOW [...] in the left elbow or left forearm. [place], [place] LEFT ELBOW 3 VIEWS A ND [...] or retained radiopaque foreign body is identified. [place], [place] No fracture or joint abnormality is identified in the left elbow or left forearm. [place], [place] XR ELBOW LEFT (MIN 3 VIEWS)o [...] Dick Torres MD 12/13/19 Final result Normal [facility] XR ELBOW RIGHT (MIN 3 VIEWS) [...] Dick Torres MD 12/13/19 Final result Normal [facility] XR RADIUS ULNA LEFT (2 VIEWS [...] Dick Torres MD 12/13/19 Final result Normal [facility] XR SHOULDER RIGHT (MIN 2 VIE [...] Dick Torres MD 12/13/19 Final result Normal [facility] Vital Signs Date Time Vital Sign Value Performing Clinician Federico de los santos 12-13-2019 09:35-0400 BMI (Body Mass Index) 31.07 [facility] [place] [place] 12-13-2019 09:35-0400 Body Temperature 98.29 [degF] [place], [place] 12-13-2019 09:35-0400 Body weight 82.1 kg [place], [place] 12-13-2019 09:35-0400 BP Diastolic 80 mm[Hg] [place], [place] 12-13-2019 09:35-0400 BP Systolic 133 mm[Hg] [place], [place] 12-13-2019 09:35-0400 Height 162.6 cm [place], [place] 12-13-2019 09:35-0400 Pulse (Heart Rate) 100 /min [place], [place] 12-13-2019 09:35-0400 Pulse Oximetry 98 % [place], [place] 12-13-2019 09:35-0400 Respiratory Rate 16 /min [place] Encounters Encounter Date Encounter Type Care Provider Facility Start: 11-28-2023 End: 11-28-2023 ambulatory MELLO TAO Not Available Start: 11-13-2023 End: 11-13-2023 ambulatory MELLO TAO Not Available Start: 10-30-2023 End: 10-30-2023 ambulatory KAVITHA RICKEY Not Available Start: 10-17-2023 End: 10-17-2023 ambulatory KAVITHA RICKEY Not Available Start: 09-17-2023 End: 09-17-2023 ambulatory KAVITHA RICKEY Not Available Start: 08-16-2023 End: 08-16-2023 ambulatory MELLO TAO Not Available Start: 07-19-2023 End: 07-19-2023 ambulatory KAVITHA RICKEY Not Available Start: 06-21-2023 End: 06-21-2023 ambulatory KAVITHA RICKEY Not Available Start: 12-13-2019 End: 12-13-2019 Emergency department patient visit DANNIE ROSENBERG [facility] Start: 12-13-2019 End: 12-13-2019 Emergency department patient visit Curtis Rossi Beverlyelba Work Phone: [facility] ED Comment on above: Contusion of [...] Start: 12-13-2019 Radex forearm 2 views Felisha oschinyere Rossi Steven Work Phone: Start: 12-13-2019 End: 12-13-2019 Radex elbow complete minimum 3 views Curtis Atkins Work Phone: Start: 12-13-2019 Radex shoulder compl ete minimum 2 views Curtis Atkins Work Phone: Plan of Treatment Date Care Activity Detail Author Start: 12-30-2019 Influenza vaccination Flu vaccine (# 1) [place], [place] Start: 2013 Screening for malign ant neoplasm of cervix Cervical cancer screen [place], [place] Start: 09-17-2011 DTaP/Tdap/Td vaccine (1 - Tdap) DTaP/Tdap/Td vaccine (1 - Tdap) [place], [place] Start: 09-17-2007 HIV screening HIV screen [facility] [place] Start: 1993 Varicella vaccine (1 of 2 - 2-dose childhood series) Varicella vaccine (1 of 2 - 2-dose childhood series) [place], [place] Payers Date Payer Category Payer Private Health Insurance [id number] 2014 Unknown 1990 Unknown [id number] 2.16.84 [id number] 1990 Unknown [id number] 2.16.84 [id number] 1992 Unknown [id number] 2.16.84 [id number] 1992 Unknown [id number] 2.16.84 [id number] 1992 Unknown [id number] 2.16.84 [id number] 1992 Unknown [id number] 2.16.84 [id number] 1992 Unknown [id number] 2.16.84 [id number] 1992 Unknown [id number] 2.16.84 [id number] 1992 Unknown [id number] 2.16.84 [id number] Social History Date Type Detail Facility Start: 12-13-2019 Tobacco smoking stat [facility] Never smoker [place] Start: 12-13-2019 Tobacco use and exposure Never used [place] Start: 12-13-2019 Alcohol intake Ex-drinker (finding) [place], [place] Sex Assigned At Not on file [place] Exposure to SARS-CoV -2 (event) Not sure [place], [place] Summary Purpose Family History No Family History Records FoundNo Family History Records FoundNo Family History Records Found Advance Directives No Advanced Directives Records FoundDocuments on File Type Date Recorded 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 * Contusion (Zimbabwean) * Bruises (Zimbabwean) documented in this encounter Assessments Diagnosis Contusion of right shoulder, initial encounter Contusion of right elbow, initial encounter Contusion of left elbow, initial encounter Contusion of left forearm, initial encounter Additional Source Comments INFORMATION SOURCE (unrecogn ized section and content) DATE CREATED AUTHOR 12/13/2019 Tonya lo DATE CREATED AUTHOR AUTHOR'S ORGANIZ ATION 03/22/2020 [facility] DATE CREATED AUTHOR AUTHOR'S ORGANIZ ATION 12/01/2023 [facility] dical Specialists EPIC Reason for Visit [...] BE BASED ON THE PRIMARY CLINICAL RECORDS. [employer] provides no warranty or guarantee of the accuracy or completeness of information in this document.
== END 2023-12-19 12:45 | disposition home or self-care (01) ==
LOC: NOMS 12:44
PROVIDERS: Visit Provider Obstetrics & Gynecology
DX: O24.419 Gestational diabetes mellitus in pregnancy, unspecified control (principal); Z3A.37 37 weeks gestation of pregnancy
CPT/HCPCS: 36415; 76816; 87081; 87150

== ENCOUNTER 2023-12-19 19:31 | Outpatient (REF) | payer OTHER, MEDICAID, SELFPAY ==
--- OUTSIDE RECORDS SUMMARY | 2023-12-19 19:35 | XMS_ITS | CCD ---
Author Organization [facility] Care Team Providers Care Digital Media Sales Consultant Name Role Phone DANNIE ROSENBERG Primary Care [...] Summary. CODING DATE: 03/22/2020 FINAL [facility] STATUS: Home (Routine DC) PAYOR: Self Pay [...] Revised Date Saved: 03/22/2020 03:50 pm Normal [facility] SARS-CoV-2, NAAon 03-22-2020 SARS CORONAVIRUS 2 RNA:PRTHR:PT:RESPIRA TORY:ORD:PROBE.AMP.T AR Not Detected Not Detected [facility] Comment on above: Result Comment: This nucleic acid amplification test was developed and its performance characteristics determined by [employer]. Nucleic acid amplification tests include PCR and [...] detected) result in this assay. Performed at: [facility] [address] [facility] [place] [id number] MD Pawel Santillan Performed By: #### S ARS-CoV-2, VICTORINO #### [facility] [address] [place] [address] ED Note-Physicianon 03-21-20 ED Note-Physician Basic Information [...] CHET In 3 days 03/23/2020 EST [address] [place] [id number] [facility] (1) Additional Instructions: You should self quarantine [...] Cap-EC, 40 mg= 1 cap(s), Oral, Daily [place]all 325 mg-5 mg oral tablet, See Instructions, PRN Percocet 325 mg-5 mg Tab, 1 to 2 tab(s), Oral, q4hr, PRN Allergies No Known Allergies Social History Alcohol Current, Beer, Wine, Liquor, 1-2 times per month, 03/20/2020 Substance Abuse Tobacco Lab Results No qualifying data available. Diagnostic Results No qualifying data available. Normal [facility] Comment on above: Result Comment: Elec tronically Signed By: Ben Vicente, Artem Suazo\.vipul\Date and Time Signed: 03/21/20 07:19 EST Consent for Treatmenton 03-01 Consent for Treatment [id number] 0CD:127 Normal [facility] Discharge Instructionson Discharge Instructions [id number] 0CD:127 Normal [facility] ED Clinical Summaryon 2019 ED Clinical Summary [place] [id number] ED Clinical Summary Person Information Name: NORY ALONZO/[facility] Age: 29 Years : 1990 Sex: Female Language: Polish PCP: Montrell ROSENBERG MD Marital Status: Single [...] 03/20/2020 11:06:22 03/20/2020 11:06:22 03/20/2020 11:06:22 ADDRESS: [address] [place] [address] [facility] DOC NOTES: MEDICAL INFORMATION: Prescriptions Given: Medications to Continue with No Changes Other Medications acetaminophen-hydrocod one (Broomall 325 mg-5 mg oral tablet) 1-2 tab(s) [...] Follow up: With: Address: When: Montrell ROSENBERG [address] [place] [address] Business (1) In 3 days 03/23/2020 Comments: You should self quarantine until the coronavirus test is back and is negative. Return to the emergency room if you develop chest pain shortness of breath or any new symptoms. DIAGNOSIS: 1:Flu-like symptoms Normal [facility] ED Patient Education Noteon 03-20-2020 ED Patient [...] coughing. HOME CARE INSTRUCTIONS ? Only take dnmx-njb-zwjiiwi or prescription medicines for pain, discomfort, diarrhea, [...] Document Reviewed: 08/21/2011 ExitCare? Patient Information ?2014 [employer], [employer]. This information is not intended to replace advice given to you by your health care provider. Make sure you discuss any questions you have with your health care provider. Normal [facility] ED Patient Summaryon 020 ED Patient Summary [place] [id number] Patient Discharge Instructions Person Information Name: NORY ALONZO Age: 29 Years Arrival Date: 03/20/2020 09:00:39 Discharge Diagnosis: 1:Flu-like symptoms Primary Care Physician: CHET CUTLER, Montrell Provider Information Primary Provider: Artem Contreras M.D. Advanced Stroke Coordinator:None The exam and treatment you received in the Emergency Department were for an urgent problem and are not intended as complete care. It is important that you follow up with a doctor, nurse practitioner, or physician?s or assistant for ongoing care. If your symptoms [...] Follow-up Instructions: With: Address: When: Megabrigitte CHET [address] [place] [address] Business (1) In 3 days 03/23/2020 [...] opioids can be used to help relieve mhwufidf-vd-crjdwy pain and are often prescribed following a [...] be struggling with addiction, tell your health neurocritical care physician and ask for guidance or call [facility]?S National Helpline at 2-657-878-CLOP. h Source: US Department of Health and Human Services/Center for Disease Control & Prevention [facility] Medications Given: Medication Dose Route No medications found. Medication Information: Medications to Continue with No Changes Other Medications acetaminophen-hydrocod one (Broomall 325 mg-5 mg oral tablet) 1-2 tab(s) [...] Information: Artur Victor Thank you for choosing [facility] Patient Education Materials: Viral Infections A [...] coughing. HOME CARE INSTRUCTIONS ? Only take zhfu-rpf-unfbsvo or prescription medicines for pain, discomfort, diarrhea, [...] Document Reviewed: 08/21/2011 ExitCare? Patient Information ?2015 [employer]. This information is not intended to replace advice given to you by your health care provider. Make sure you discuss any questions you have with your health care provider. CHERI Rabago COURTNEY A , have received the following patient education materials/instructions and have verbalized understanding: Patient Education Materials: Viral Infections Follow-up Instructions: With: Address: When: Megaishaannelson ROSENBERG [address] [place] [address], [place] [address] Business (1) In 3 days 03/23/2020 Comments: You should self quarantine until the coronavirus test is back and is negative. Return to the emergency room if you develop chest pain shortness of breath or any new symptoms. Patient Signature Date Clinician/Nurse Signature ___ Date 03/20/2020 11:06:24 Normal [facility] Otheron 12-13-2019 RIGHT SHOULDER 3 VIE WS [...] tissue calcification or degenerative changes are identified. [employer] [facility] [place] No fracture or joint abnormality is identified in the right shoulder or right elbow. [employer] [place] Elia, pn Incoming Radiant Results From [employer] - 12/13/2019 11:10 AM EDT RIGHT SHOULDER [...] in the right shoulder or right elbow. [facility] [place] Elia, pn Incoming Radiant Results From [employer] - 12/13/2019 11:10 AM EDT LEFT ELBOW [...] in the left elbow or left forearm. [place], [place] LEFT ELBOW 3 VIEWS A ND [...] or retained radiopaque foreign body is identified. [place] No fracture or joint abnormality is identified in the left elbow or left forearm. [place] XR ELBOW LEFT (MIN 3 VIEWS)o [...] Dick Torres MD 12/13/19 Final result Normal [facility] XR ELBOW RIGHT (MIN 3 [...] Dick Torres MD 12/13/19 Final result Normal [facility] XR RADIUS ULNA LEFT (2 [...] Dick Torres MD 12/13/19 Final result Normal [facility] XR SHOULDER RIGHT (MIN 2 [...] Dick Torres MD 12/13/19 Final result Normal [facility] Vital Signs Date Time Vital Sign Value Performing Clinician Federico de los santos 12-13-2019 09:35-0400 BMI (Body Mass Index) 31.07 kg/m2 [facility] [place] 12-13-2019 09:35-0400 Body Temperature 98.29 [degF] [place], [place] 12-13-2019 09:35-0400 Body weight 82.1 kg [place], [place] 12-13-2019 09:35-0400 BP Diastolic 80 mm[Hg] [place], [place] 12-13-2019 09:35-0400 BP Systolic 133 mm[Hg] [place], [place] 12-13-2019 09:35-0400 Height 162.6 cm [place] 12-13-2019 09:35-0400 Pulse (Heart Rate) 100 /min [place], [place] 12-13-2019 09:35-0400 Pulse Oximetry 98 % [place], [place] 12-13-2019 09:35-0400 Respiratory Rate 16 /min [place] Encounters Encounter Date Encounter Type Care [...] 12-13-2019 Emergency department patient visit DANNIE ROSENBERG [facility] Start: 12-13-2019 End: 12-13-2019 Emergency department patient visit Curtis Rossi Beverlyelba Work Phone: [facility] ED Comment on above: Contusion [...] 12-30-2019 Influenza vaccination Flu vaccine (# 1) [place], [place] Start: 2013 Screening for malign ant neoplasm of cervix Cervical cancer screen [place], [place] Start: 09-17-2011 DTaP/Tdap/Td vaccine (1 - Tdap) DTaP/Tdap/Td vaccine (1 - Tdap) [place] Start: 09-17-2007 [facility] [place] [place] Start: 1993 Varicella vaccine (1 of 2 - 2-dose childhood series) Varicella vaccine (1 of 2 - 2-dose childhood series) [place], [place] Payers Date Payer Category Payer Private Health Insurance [id number] 2014 Unknown 1990 Unknown [id number] 2.16.84 [id number] 1990 Unknown [id number] 2.16.84 [id number] 1992 Unknown [id number] 2.16.84 [id number] 1992 Unknown [id number] 2.16.84 0.1.743923.3.579.2.9 1992 Unknown [id number] 2.16.84 [id number] 1992 Unknown [id number] 2.16.84 [id number] 1992 Unknown [id number] 2.16.84 [id number] 1992 Unknown [id number] 2.16.84 [id number] 1992 Unknown [id number] 2.16.84 [id number] Social History Date Type Detail Facility Start: 12-13-2019 Tobacco smoking stat [facility] Never smoker [place] Start: 12-13-2019 Tobacco use and exposure Never used [place] Start: 12-13-2019 Alcohol intake Ex-drinker (finding) [place] Sex Assigned At Not on file [place] Exposure to SARS-CoV -2 (event) Not sure [place] Summary Purpose Family History No Family History Records FoundNo Family History Records FoundNo Family History Records Found Advance Directives No Advanced Directives Records FoundDocuments on File Type Date Recorded Patient Bilingual Speech Therapist Expl anation Advance Directives and Living Will Power of Contact Center Associate Discharge Instructions * Attachments The following attachments cannot be sent through Care Everywhere. * Contusion (Polish) * Bruises (Polish) documented in this encounter Assessments Diagnosis Contusion of right shoulder, initial encounter Contusion of right elbow, initial encounter Contusion of left elbow, initial encounter Contusion of left forearm, initial encounter Additional Source Comments INFORMATION SOURCE (unrecogn ized section and content) DATE CREATED AUTHOR 12/13/2019 Tonya lo DATE CREATED AUTHOR AUTHOR'S ORGANIZ ATION 03/22/2020 Sylvester [facility] DATE CREATED AUTHOR AUTHOR'S ORGANIZ ATION 12/01/2023 [facility] dical Specialists EPIC Reason for Visit (unrecogniz [...] BE BASED ON THE PRIMARY CLINICAL RECORDS. [employer] provides no warranty or guarantee of the accuracy or completeness of information in this document.
== END 2023-12-19 19:32 | disposition home or self-care (01) ==
LOC: LAB 19:31
PROVIDERS: Visit Provider Obstetrics & Gynecology
DX: Z34.93 Encounter for supervision of normal pregnancy, unspecified, third trimester (principal)
CPT/HCPCS: 36415; 87081; 87150

== ENCOUNTER 2023-12-24 07:18 | Outpatient (OUT) | payer OTHER, MEDICAID, SELFPAY ==
--- OUTSIDE RECORDS SUMMARY | 2023-12-24 07:29 | XMS_ITS | CCD ---
Author Organization [facility] Care Team Providers Care Director Field Services Name Role Phone DANNIE ROSENBERG Primary Care Unavailable CURTIS HARRIS Attending Unavailable Unavailable Primary Care Provider UnavailKAVITHA Covington Attending Unavailable MELLO BURGER Attending Unavailable KAVITHA LANG Attending Unavailable RICKEY, KAVITHA Attending Unavailable RICKEY, KAVITHA Attending Unavailable MELLO BURGER Attending Unavailable TAOMELLO CHE Attending Unavailable RICKEY, KAVITHA Attending Unavailable RICKEY, KAVITHA Attending Unavailable Medications Current Medications Medication Drug [...] 03-22-2020 Coding Summary. CODING DATE: 03/22/2020 FINAL [facility] DSC STATUS: Home (Routine DC) PAYOR: Self Pay [...] Revised Date Saved: 03/22/2020 03:50 pm Normal [facility] SARS-CoV-2, NAAon 03-22-2020 SARS CORONAVIRUS 2 RNA:PRTHR:PT:RESPIRA TORY:ORD:PROBE.AMP.T AR Not Detected Not Detected [facility] Comment on above: Result Comment: This nucleic acid amplification test was developed and its performance characteristics determined by [employer]. Nucleic acid amplification tests include PCR and [...] detected) result in this assay. Performed at: [facility] [address] [facility] [place] [id number] MD Pawel Santillan Performed By: #### S ARS-CoV-2, VICTORINO #### [facility] [address] [place] [address] ED Note-Physicianon 03-21-20 ED Note-Physician Basic Information Time Seen: Ben Vicente, Artem Suazo 03/20/2020 09:24 Chief Complaint worked with a [...] ROSENBERG In 3 days 03/23/2020 EST [address] [id number] [facility] (1) Additional Instructions: You should self quarantine [...] Cap-EC, 40 mg= 1 cap(s), Oral, Daily [place] 325 mg-5 mg oral tablet, See Instructions, PRN Percocet 325 mg-5 mg Tab, 1 to 2 tab(s), Oral, q4hr, PRN Allergies No Known Allergies Social History Alcohol Current, Beer, Wine, Liquor, 1-2 times per month, 03/20/2020 Substance Abuse Tobacco Lab Results No qualifying data available. Diagnostic Results No qualifying data available. Normal [facility] Comment on above: Result Comment: Elec tronically Signed By: Ben Vicente, Artem Suazo\.br\Date and Time Signed: 03/21/20 07:19 EST Consent for Treatmenton 03-01 Consent for Treatment [id number] 0CD:127 Normal [facility] Discharge Instructionson Discharge Instructions [id number] 0CD:127 Normal [facility] ED Clinical Summaryon 2019 ED Clinical Summary [place] [id number] ED Clinical Summary Person Information Name: NORY ALONZO [place] Age: 29 Years : 1990 Sex: Female Language: Cymraes PCP: Montrell ROSENBERG MD Marital Status: Single [...] 11:06:22 03/20/2020 11:06:22 03/20/2020 11:06:22 ADDRESS: [address] [place] [address] PHYS DOC NOTES: MEDICAL INFORMATION: Prescriptions Given: Medications to Continue with No Changes Other Medications acetaminophen-hydrocod one ([place] 325 mg-5 mg oral tablet) 1-2 tab(s) [...] Follow up: With: Address: When: Montrell ROSENBERG [address] [place] [phone] Business (1) In 3 days 03/23/2020 Comments: You should self quarantine until the coronavirus test is back and is negative. Return to the emergency room if you develop chest pain shortness of breath or any new symptoms. DIAGNOSIS: 1:Flu-like symptoms Normal [facility] ED Patient Education Noteon 03-20-2020 ED Patient [...] coughing. HOME CARE INSTRUCTIONS ? Only take kneo-nqv-goxavvz or prescription medicines for pain, discomfort, diarrhea, [...] Document Reviewed: 08/21/2011 ExitCare? Patient Information ?[address] [place], [facility]. This information is not intended to replace advice given to you by your health care provider. Make sure you discuss any questions you have with your health care provider. Normal [facility] ED Patient Summaryon 020 ED Patient Summary [address] [address] Patient Discharge Instructions Person Information Name: NORY ALONZO Age: 29 Years Arrival Date: 03/20/2020 09:00:39 Discharge Diagnosis: 1:Flu-like symptoms Primary Care Physician: Montrell ROSENBERG MD Provider Information Primary Provider: Artem Contreras M.D. Advanced Real Estate Administrative Assistant:None The exam and treatment you received in the Emergency Department were for an urgent problem and are not intended as complete care. It is important that you follow up with a doctor, nurse practitioner, or physician?s retail loan originator assistant for ongoing care. If your symptoms [...] Follow-up Instructions: With: Address: When: Montrell ROSENBERG [address] [place] [address] Business (1) In 3 days 03/23/2020 [...] opioids can be used to help relieve edoxqpxd-jm-yhkomd pain and are often prescribed following a [...] struggling with addiction, tell your health care team coordinator scheduler and ask for guidance or call DIANAEnid?Lina National Helpline at 8-070-861-YBYC. n Source: US Department of Health and Human Services/Center for Disease Control & Prevention [facility] Medications Given: Medication Dose Route No medications found. Medication Information: Medications to Continue with No Changes Other Medications acetaminophen-hydrocod one ([place] 325 mg-5 mg oral tablet) 1-2 tab(s) [...] Information: Artur Victor Thank you for choosing [facility] Patient Education Materials: Viral Infections A [...] coughing. HOME CARE INSTRUCTIONS ? Only take sraj-hax-exyebom or prescription medicines for pain, discomfort, diarrhea, [...] Document Reviewed: 08/21/2011 ExitCare? Patient Information ?2015 [employer]. This information is not intended to replace advice given to you by your health care provider. Make sure you discuss any questions you have with your health care provider. CHERI Rabago COURTNEY A , have received the following patient education materials/instructions and have verbalized understanding: Patient Education Materials: Viral Infections Follow-up Instructions: With: Address: When: Montrell ROSENBERG [address] [place] [address], [place] [phone] Business (1) In 3 days 03/23/2020 Comments: You should self quarantine until the coronavirus test is back and is negative. Return to the emergency room if you develop chest pain shortness of breath or any new symptoms. Patient Signature Date Clinician/Nurse Signature ___ Date 03/20/2020 11:06:24 Normal [facility] Otheron 12-13-2019 RIGHT SHOULDER 3 VIE WS [...] tissue calcification or degenerative changes are identified. [facility] [place] No fracture or joint abnormality is identified in the right shoulder or right elbow. [email or web address], [place] Elia, pn Incoming Radiant Results From [employer] - 12/13/2019 11:10 AM EDT RIGHT SHOULDER [...] in the right shoulder or right elbow. [employer] [place], [place] Elia, Mhpn Incoming Radiant Results From [employer]Pacs - 12/13/2019 11:10 AM EDT LEFT ELBOW [...] in the left elbow or left forearm. [place], [place] LEFT ELBOW 3 VIEWS A ND [...] or retained radiopaque foreign body is identified. [place], [place] No fracture or joint abnormality is identified in the left elbow or left forearm. [place] XR ELBOW LEFT (MIN 3 VIEWS)o [...] Dick Torres MD 12/13/19 Final result Normal [facility] XR ELBOW RIGHT (MIN 3 [...] Dick Torres MD 12/13/19 Final result Normal [facility] XR RADIUS ULNA LEFT (2 [...] Dick Torres MD 12/13/19 Final result Normal [facility] XR SHOULDER RIGHT (MIN 2 [...] Dick Torres MD 12/13/19 Final result Normal [facility] Vital Signs Date Time Vital Sign Value Performing Clinician Faci lity 12-13-2019 09:35-0400 BMI (Body Mass Index) 31.07 kg/m2 [facility] [place] 12-13-2019 09:35-0400 Body Temperature 98.29 [degF] [place], [place] 12-13-2019 09:35-0400 Body weight 82.1 kg [place], [place] 12-13-2019 09:35-0400 BP Diastolic 80 mm[Hg] [place], [place] 12-13-2019 09:35-0400 BP Systolic 133 mm[Hg] [place], [place] 12-13-2019 09:35-0400 Height 162.6 cm [place], [place] 12-13-2019 09:35-0400 Pulse (Heart Rate) 100 /min [place], [place] 12-13-2019 09:35-0400 Pulse Oximetry 98 % [place], [place] 12-13-2019 09:35-0400 Respiratory Rate 16 /min [place], [place] Encounters Encounter Date Encounter Type Care Provider Facility Start: 12-19-2023 End: 12-19-2023 ambulatory KAVITHA RICKEY Not Available Start: 12-12-2023 End: 12-12-2023 ambulatory KAVITHA RICKEY Not Available Start: 11-28-2023 End: 11-28-2023 ambulatory MELLO TAO [...] 12-13-2019 Emergency department patient visit DANNIE ROSENBERG [facility] Start: 12-13-2019 End: 12-13-2019 Emergency department patient visit Curtis Harris Work Phone: [facility] ED Comment on above: Contusion [...] 12-30-2019 Influenza vaccination Flu vaccine (# 1) [place], [place] Start: 2013 Screening for malign ant neoplasm of cervix Cervical cancer screen [place], [place] Start: 09-17-2011 DTaP/Tdap/Td vaccine (1 - Tdap) DTaP/Tdap/Td vaccine (1 - Tdap) [place], [place] Start: 09-17-2007 HIV screening HIV screen [place], [place] Start: 1993 Varicella vaccine (1 of 2 - 2-dose childhood series) Varicella vaccine (1 of 2 - 2-dose childhood series) [place], [place] Payers Date Payer Category Payer Medicaid [id number] 2022 Private Health Insurance [id number] 2014 Unknown 1992 Unknown [id number] 2.16.84 [id number] 1990 Unknown [id number] 2.16.84 0.1.485196.3.579.2.9 1992 Unknown [id number] 2.16.84 0.1.178747.3.579.2.1258 1992 Unknown [id number] 2.16.84 0.1.337636.3.579.2.9 1992 Unknown [id number] 2.16.84 0.1.580135.3.579.2.1258 1992 Unknown [id number] 2.16.84 0.1.723251.3.579.2.1259 1992 Unknown [id number] 2.16.84 0.1.472989.3.579.2.9 1992 Unknown [id number] 2.16.84 0.1.324363.3.579.2.9 1992 Unknown [id number] 2.16.84 0.1.490114.3.579.2.9 1992 Unknown [id number] 2.16.84 0.1.214237.3.579.2.9 1992 Unknown [id number] 2.16.84 0.1.070063.3.579.2.1259 Social History Date Type Detail Facility Start: 12-13-2019 [facility] [place] Start: 12-13-2019 Tobacco use and exposure Never used [place], [place] Start: 12-13-2019 Alcohol intake Ex-drinker (finding) [place], [place] Sex Assigned At [facility] file [facility] Exposure to SARS-CoV -2 (event) Not sure [facility] [place] Summary Purpose Family History No Family History Records FoundNo Family History Records FoundNo Family History Records Found Advance Directives No Advanced Directives Records FoundDocuments on File Type Date Recorded Patient Strap Buckler Machine Expl anation Advance Directives and Living Will Power of Tap[place] Discharge Instructions * Attachments The following attachments cannot be sent through Care Everywhere. * Contusion (Cymraes) * Bruises (Cymraes) documented in this encounter Assessments Diagnosis Contusion of right shoulder, initial encounter Contusion of right elbow, initial encounter Contusion of left elbow, initial encounter Contusion of left forearm, initial encounter Additional Source Comments INFORMATION SOURCE (unrecogn ized section and content) DATE CREATED AUTHOR 12/13/2019 Tonya lo DATE CREATED AUTHOR AUTHOR'S ORGANIZ ATION 03/22/2020 [facility] DATE CREATED AUTHOR AUTHOR'S ORGANIZ ATION 12/21/2023 [facility] dical Specialists EPIC Reason for Visit (unrecogniz [...] BE BASED ON THE PRIMARY CLINICAL RECORDS. [employer] provides no warranty or guarantee of the accuracy or completeness of information in this document.
--- NOTE | 2023-12-24 20:01 | US_ITS ---
[address] [address] Patient Name: NORY ALONZO MRN: [id number] date: 1990 Sex: F Assigned Patient Location: [facility] Current Patient Location: Accession/Order Number: [id number] Exam Date: 12/24/2023 20:06 Report Date: 12/25/2023 07:17 At the request of: KAVITHA LANG Procedure: US OB BPP w non-stress EXAMINATION: US OB BPP w non-stress HISTORY: GESTATIONAL DIABETES MELLITUS O24.419 COMPARISON: No relevant comparison available. TECHNIQUE: Ultrasound biophysical profile was performed in the radiology department. non-reactive stress testing was performed by nursing staff in the birthing center. FINDINGS: BREATHING MOVEMENTS: 2 GROSS BODY MOVEMENTS: 2 TONE: 2 QUALITATIVE AMNIOTIC FLUID VOLUME: 2 PRESENTATION: CEPHALIC HEART RATE: 174.19 bpm AMNIOTIC FLUID VOLUME: 16.0 cm GESTATIONAL AGE: 36 weeks 6 days US/US OB BPP w non-stress IMPRESSION: Total biophysical profile score: 8 Electronically authenticated by: MANINDER BAZAN Date: 12/25/2023 07:17
[2023-12-24 20:34] VITALS: BP 134/87; PULSE 78
== END 2023-12-24 21:17 | disposition home or self-care (01) ==
LOC: US 07:18 → FBC 19:58
PROVIDERS: Visit Provider Obstetrics & Gynecology
DX: O24.419 Gestational diabetes mellitus in pregnancy, unspecified control (principal)
CPT/HCPCS: 76818

== ENCOUNTER 2023-12-27 17:50 | Outpatient (OUT) | payer OTHER, MEDICAID, SELFPAY ==
--- OUTSIDE RECORDS SUMMARY | 2023-12-27 17:56 | XMS_ITS | CCD ---
Author Organization [facility] Care Team Providers Care Laboratory Inspector Name Role Phone DANNIE ROSENBERG Primary Care [...] 03-22-2020 Coding Summary. CODING DATE: 03/22/2020 FINAL [facility] DSC STATUS: Home (Routine DC) PAYOR: [...] Revised Date Saved: 03/22/2020 03:50 pm Normal [facility] SARS-CoV-2, NAAon 03-22-2020 SARS CORONAVIRUS 2 RNA:PRTHR:PT:RESPIRA TORY:ORD:PROBE.AMP.T AR Not Detected Not Detected [facility] Comment on above: Result Comment: This nucleic acid amplification test was developed and its performance characteristics determined by [employer]. Nucleic acid amplification tests include PCR and [...] detected) result in this assay. Performed at: [facility] [employer] [facility] Laboratory [address] [facility] [place] [id number] MD Pawel Santillan Performed By: #### S ARS-CoV-2, VICTORINO #### [facility] [address] [place] [address] ED Note-Physicianon 03-21-20 ED Note-Physician Basic Information [...] ROSENBERG In 3 days 03/23/2020 EST [address] [id number] [facility] (1) Additional Instructions: You should [...] Cap-EC, 40 mg= 1 cap(s), Oral, Daily [place] 325 mg-5 mg oral tablet, See Instructions, PRN Percocet 325 mg-5 mg Tab, 1 to 2 tab(s), Oral, q4hr, PRN Allergies No Known Allergies Social History Alcohol Current, Beer, Wine, Liquor, 1-2 times per month, 03/20/2020 Substance Abuse Tobacco Lab Results No qualifying data available. Diagnostic Results No qualifying data available. Normal [facility] Comment on above: Result Comment: Elec tronically Signed By: Ben Vicente, Artem Suazo\.br\Date and Time Signed: 03/21/20 07:19 EST Consent for Treatmenton 03-01 Consent for Treatment [id number] 0CD:127 Normal [facility] Discharge Instructionson Discharge Instructions [id number] 0CD:127 Normal [facility] ED Clinical Summaryon 2019 ED Clinical Summary [place] [id number] ED Clinical Summary Person Information Name: NORY ALONZO [place] Age: 29 Years : 1990 Sex: Female Language: South Korean PCP: Montrell ROSENBERG MD Marital Status: Single [...] 03/20/2020 11:06:22 03/20/2020 11:06:22 03/20/2020 11:06:22 ADDRESS: [address] [place] [id number] PHYS DOC NOTES: MEDICAL INFORMATION: Prescriptions Given: Medications to Continue with No Changes Other Medications acetaminophen-hydrocod one ([place] 325 mg-5 mg oral tablet) 1-2 tab(s) [...] up: With: Address: When: Montrell ROSENBERG [address] [place] [phone] Business (1) In 3 days 03/23/2020 Comments: You should self quarantine until the coronavirus test is back and is negative. Return to the emergency room if you develop chest pain shortness of breath or any new symptoms. DIAGNOSIS: 1:Flu-like symptoms Normal [facility] ED Patient Education Noteon 03-20-2020 ED [...] coughing. HOME CARE INSTRUCTIONS ? Only take kegz-khx-vxbsdes or prescription medicines for pain, discomfort, diarrhea, [...] Document Reviewed: 08/21/2011 ExitCare? Patient Information ?2014 [employer], [facility]. This information is not intended to replace advice given to you by your health care provider. Make sure you discuss any questions you have with your health care provider. Normal [facility] ED Patient Summaryon 020 ED Patient Summary [address] [address] Patient Discharge Instructions Person Information Name: NORY ALONZO Age: 29 Years Arrival Date: 03/20/2020 09:00:39 Discharge Diagnosis: 1:Flu-like symptoms Primary Care Physician: Montrell ROSENBERG MD Provider Information Primary Provider: Artem Contreras M.D. Advanced Sales Engineer:None The exam and treatment you received in the Emergency Department were for an urgent problem and are not intended as complete care. It is important that you follow up with a doctor, nurse practitioner, or physician?s admissions assistant for ongoing care. If your symptoms [...] Follow-up Instructions: With: Address: When: Montrell ROSENBERG [address] [place] [address] Business (1) In 3 days 03/23/2020 [...] opioids can be used to help relieve xbzszsrv-an-vykcty pain and are often prescribed following a [...] be struggling with addiction, tell your health certified caregiver and ask for guidance or call DIANAEnid?Lina National Helpline at 0-022-342-BBTH. u Source: US Department of Health and Human Services/Center for Disease Control & Prevention [facility] Medications Given: Medication Dose Route No medications found. Medication Information: Medications to Continue with No Changes Other Medications acetaminophen-hydrocod one ([place] 325 mg-5 mg oral tablet) 1-2 tab(s) [...] Information: Artur Victor Thank you for choosing [facility] Patient Education Materials: Viral Infections A [...] coughing. HOME CARE INSTRUCTIONS ? Only take vdis-jhe-xwimrgy or prescription medicines for pain, discomfort, diarrhea, [...] Document Reviewed: 08/21/2011 ExitCare? Patient Information ?2015 [employer]. This information is not intended to replace advice given to you by your health care provider. Make sure you discuss any questions you have with your health care provider. CHERI Rabago COURTNEY A , have received the following patient education materials/instructions and have verbalized understanding: Patient Education Materials: Viral Infections Follow-up Instructions: With: Address: When: Montrell ROSENBERG [address] [place] [address], [place] [phone] Business (1) In 3 days 03/23/2020 Comments: You should self quarantine until the coronavirus test is back and is negative. Return to the emergency room if you develop chest pain shortness of breath or any new symptoms. Patient Signature Date Clinician/Nurse Signature ___ Date 03/20/2020 11:06:24 Normal [facility] Otheron 12-13-2019 RIGHT SHOULDER 3 VIE [...] tissue calcification or degenerative changes are identified. [facility] [place] No fracture or joint abnormality is identified in the right shoulder or right elbow. [employer], [place] Elia, pn Incoming Radiant Results From [employer] - 12/13/2019 11:10 AM EDT RIGHT SHOULDER [...] in the right shoulder or right elbow. [employer] [place], [place] Elia, Mhpn Incoming Radiant Results From [employer]acs - 12/13/2019 11:10 AM EDT LEFT ELBOW [...] in the left elbow or left forearm. [place], [place] LEFT ELBOW 3 VIEWS A ND [...] or retained radiopaque foreign body is identified. [place] No fracture or joint abnormality is identified in the left elbow or left forearm. [place] XR ELBOW LEFT (MIN 3 VIEWS)o [...] Dick Torres MD 12/13/19 Final result Normal [facility] XR ELBOW RIGHT (MIN 3 [...] Dick Torres MD 12/13/19 Final result Normal [facility] XR RADIUS ULNA LEFT (2 [...] Dick Torres MD 12/13/19 Final result Normal [facility] XR SHOULDER RIGHT (MIN 2 [...] Dick Torres MD 12/13/19 Final result Normal [facility] Vital Signs Date Time Vital Sign Value Performing Clinician Faci lity 12-13-2019 09:35-0400 BMI (Body Mass Index) 31.07 kg/m2 [facility] [place] [place] 12-13-2019 09:35-0400 Body Temperature 98.29 [degF] [place], [place] 12-13-2019 09:35-0400 Body weight 82.1 kg [place], [place] 12-13-2019 09:35-0400 BP Diastolic 80 mm[Hg] [place], [place] 12-13-2019 09:35-0400 BP Systolic 133 mm[Hg] [place], [place] 12-13-2019 09:35-0400 Height 162.6 cm [place], [place] 12-13-2019 09:35-0400 Pulse (Heart Rate) 100 /min [place], [place] 12-13-2019 09:35-0400 Pulse Oximetry 98 % [place], [place] 12-13-2019 09:35-0400 Respiratory Rate 16 /min [place], [place] Encounters Encounter Date Encounter Type Care [...] 12-13-2019 Emergency department patient visit DANNIE ROSENBERG [facility] Start: 12-13-2019 End: 12-13-2019 Emergency department patient visit Curtis Harris Work Phone: [facility] ED Comment on above: Contusion [...] 12-30-2019 Influenza vaccination Flu vaccine (# 1) [place], [place] Start: 2013 Screening for malign ant neoplasm of cervix Cervical cancer screen [place], [place] Start: 09-17-2011 DTaP/Tdap/Td vaccine (1 - Tdap) DTaP/Tdap/Td vaccine (1 - Tdap) [place] Start: 09-17-2007 HIV screening HIV screen [place], [place] Start: 1993 Varicella vaccine (1 of 2 - 2-dose childhood series) Varicella vaccine (1 of 2 - 2-dose childhood series) [place], [place] Payers Date Payer Category Payer Medicaid [id number] 2022 Private Health Insurance [id number] 2014 Unknown 1990 Unknown [id number] 2.16.84 0.1.374667.3.579.2.174 1990 Unknown [id number] 2.16.84 0.1.505274.3.579.2.9 1992 Unknown [id number] 2.16.84 0.1.891317.3.579.2.1258 1992 Unknown [id number] 2.16.84 0.1.323999.3.579.2.9 1992 Unknown [id number] 2.16.84 0.1.296550.3.579.2.1258 1992 Unknown [id number] 2.16.84 0.1.865998.3.579.2.1259 1992 Unknown [id number] 2.16.84 0.1.832720.3.579.2.9 1992 Unknown [id number] 2.16.84 0.1.405150.3.579.2.9 1992 Unknown [id number] 2.16.84 0.1.691277.3.579.2.9 1992 Unknown [id number] 2.16.84 0.1.718024.3.579.2.9 1992 Unknown [id number] 2.16.84 0.1.199382.3.579.2.1259 Social History Date Type Detail Facility Start: 12-13-2019 [facility] [place] [place] Start: 12-13-2019 Tobacco use and exposure Never used [place] Start: 12-13-2019 Alcohol intake Ex-drinker (finding) [place] Sex Assigned At [facility] Exposure to SARS-CoV -2 (event) Not sure [facility] [place] Summary Purpose Family History No Family History Records FoundNo Family History Records FoundNo Family History Records Found Advance Directives No Advanced Directives Records FoundDocuments on File Type Date Recorded 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 * Contusion (South Korean) * Bruises (South Korean) documented in this encounter Assessments Diagnosis Contusion of right shoulder, initial encounter Contusion of right elbow, initial encounter Contusion of left elbow, initial encounter Contusion of left forearm, initial encounter Additional Source Comments INFORMATION SOURCE (unrecogn ized section and content) DATE CREATED AUTHOR 12/13/2019 Tnoya ol DATE CREATED AUTHOR AUTHOR'S ORGANIZ ATION 03/22/2020 [facility] DATE CREATED AUTHOR AUTHOR'S ORGANIZ ATION 12/21/2023 [facility] dical Specialists EPIC Reason for Visit [...] BE BASED ON THE PRIMARY CLINICAL RECORDS. [employer] provides no warranty or guarantee of the accuracy or completeness of information in this document.
[2023-12-27 18:06] VITALS: BP 133/66; PULSE 96
== END 2023-12-27 19:11 | disposition home or self-care (01) ==
LOC: FBCO 17:53 → FBC 17:56
PROVIDERS: Visit Provider Obstetrics & Gynecology
DX: O24.419 Gestational diabetes mellitus in pregnancy, unspecified control (principal)
CPT/HCPCS: 59025

== ENCOUNTER 2024-01-02 07:07 | Outpatient (OUT) | payer OTHER, MEDICAID, SELFPAY ==
--- OUTSIDE RECORDS SUMMARY | 2024-01-02 07:09 | XMS_ITS | CCD ---
Author Organization [facility] Care Team Providers Care Senior Net Developer Architect Name Role Phone DANNIE ROSENBERG Primary Care Unavailable CURTIS HARRIS Attending Unavailable Unavailable Primary Care Provider UnavailKAVITHA Covington Attending Unavailable TAO, MELLO Attending Unavailable RICKEY, KAVITHA Attending Unavailable RICKEY, KAVITHA Attending Unavailable RICKEY, KAVITHA Attending Unavailable TAO, MELLO Attending Unavailable TAO, MELLO Attending Unavailable RICKEY, KAVITHA Attending Unavailable RICKEY, KAVITHA Attending Unavailable RICKEY, [...] Summary. CODING DATE: 03/22/2020 FINAL [facility] STATUS: Home (Routine DC) PAYOR: Self [...] Saved: 03/22/2020 03:50 pm Normal [facility] SARS-CoV-2, NAAon 03-22-2020 SARS CORONAVIRUS 2 RNA:PRTHR:PT:RESPIRA TORY:ORD:PROBE.AMP.T AR Not Detected Not Detected [facility] Comment on above: Result Comment: This nucleic acid amplification test was developed and its performance characteristics determined by [employer]. Nucleic acid amplification tests include PCR and [...] detected) result in this assay. Performed at: [facility] [address] [facility] [place] [id number] MD Pawel Santillan Performed By: #### S ARS-CoV-2, VICTORINO #### [facility] [address] [place] [address] ED Note-Physicianon 03-21-20 ED Note-Physician Basic Information [...] ROSENBERG In 3 days 03/23/2020 EST [address] [id number] [facility] (1) Additional Instructions: You should self quarantine [...] Cap-EC, 40 mg= 1 cap(s), Oral, Daily Lonepine 325 mg-5 mg oral tablet, See Instructions, PRN Percocet 325 mg-5 mg Tab, 1 to 2 tab(s), Oral, q4hr, PRN Allergies No Known Allergies Social History Alcohol Current, Beer, Wine, Liquor, 1-2 times per month, 03/20/2020 Substance Abuse Tobacco Lab Results No qualifying data available. Diagnostic Results No qualifying data available. Normal [facility] Comment on above: Result Comment: Elec tronically Signed By: Ben Vicente, Artem H\.br\Date and Time Signed: 03/21/20 07:19 EST Consent for Treatmenton 03-01 Consent for Treatment [id number] 0CD:127 Normal [facility] Discharge Instructionson Discharge Instructions [id number] 0CD:127 Normal [facility] ED Clinical Summaryon 2019 ED Clinical Summary [place] [id number] ED Clinical Summary Person Information Name: NORY ALONZO [place] Age: 29 Years : 1990 Sex: Female Language: Faroese PCP: Montrell ROSENBERG MD Marital Status: Single [...] 03/20/2020 11:06:22 03/20/2020 11:06:22 03/20/2020 11:06:22 ADDRESS: [address] [place] [id number] [facility] DOC NOTES: MEDICAL INFORMATION: Prescriptions Given: Medications to Continue with No Changes Other Medications acetaminophen-hydrocod one (Lonepine 325 mg-5 mg oral tablet) 1-2 tab(s) [...] Follow up: With: Address: When: Montrell ROSENBERG [address] [place] [id number] Business (1) In 3 days 03/23/2020 Comments: You should self quarantine until the coronavirus test is back and is negative. Return to the emergency room if you develop chest pain shortness of breath or any new symptoms. DIAGNOSIS: 1:Flu-like symptoms Normal [facility] ED Patient Education Noteon 03-20-2020 ED [...] coughing. HOME CARE INSTRUCTIONS ? Only take kmsn-dhr-ufbqynt or prescription medicines for pain, discomfort, diarrhea, [...] Document Reviewed: 08/21/2011 ExitCare? Patient Information ?[address] [employer] [facility]. This information is not intended to replace advice given to you by your health care provider. Make sure you discuss any questions you have with your health care provider. Normal [facility] ED Patient Summaryon 020 ED Patient Summary [address] [address] Patient Discharge Instructions Person Information Name: NORY ALONZO Age: 29 Years Arrival Date: 03/20/2020 09:00:39 Discharge Diagnosis: 1:Flu-like symptoms Primary Care Physician: Montrell ROSENBERG MD Provider Information Primary Provider: Artem Contreras M.D. Advanced Dogger:None The exam and treatment you received in the Emergency Department were for an urgent problem and are not intended as complete care. It is important that you follow up with a doctor, nurse practitioner, or physician?s assistant brand manager for ongoing care. If your symptoms become worse or you do not improve as expected and you are unable to reach your usual health care provider, you should return to the Emergency Department. We are available 24 hours a day. NORY ALONZO has been given the following list of patient education materials, prescriptions and follow-up instructions: Follow-up Instructions: With: Address: When: Montrell ROSENBERG [address] [place], [place] [id number] Business (1) In 3 days 03/23/2020 Comments: [...] opioids can be used to help relieve ifusezrh-qh-ulkzgu pain and are often prescribed following a [...] be struggling with addiction, tell your health occasional caregiver and ask for guidance or call DIANAEnid?Lina [employer] at 6-043-530-TIWJ. b Source: [place] Department of Health and Human Services/Center for Disease Control & Prevention [facility] Medications Given: Medication Dose Route No medications found. Medication Information: Medications to Continue with No Changes Other Medications acetaminophen-hydrocod one (Lonepine 325 mg-5 mg oral tablet) 1-2 tab(s) [...] Information: Artur Victor Thank you for choosing [facility] Patient Education Materials: Viral Infections A viral [...] coughing. HOME CARE INSTRUCTIONS ? Only take xtid-tzg-jcoazxf or prescription medicines for pain, discomfort, diarrhea, [...] Document Reviewed: 08/21/2011 ExitCare? Patient Information ?2015 [employer], [facility]. This information is not intended to replace advice given to you by your health care provider. Make sure you discuss any questions you have with your health care provider. CHERI Rabago COURTNEY A , have received the following patient education materials/instructions and have verbalized understanding: Patient Education Materials: Viral Infections Follow-up Instructions: With: Address: When: Montrell ROSENBERG [address] [place] [address], [place] [phone] Business (1) In 3 days 03/23/2020 Comments: You should self quarantine until the coronavirus test is back and is negative. Return to the emergency room if you develop chest pain shortness of breath or any new symptoms. Patient Signature Date Clinician/Nurse Signature ___ Date 03/20/2020 11:06:24 Normal [facility] Otheron 12-13-2019 RIGHT SHOULDER 3 VIE [...] tissue calcification or degenerative changes are identified. [facility] No fracture or joint abnormality is identified in the right shoulder or right elbow. [facility] [place] Incoming Radiant Results From Team Robot/Staff Ranker - 12/13/2019 11:10 AM EDT RIGHT SHOULDER [...] in the right shoulder or right elbow. [place], [place] Elia, M[facility] Incoming Radiant Results From Powerscribe/Pacs - 12/13/2019 11:10 AM EDT LEFT ELBOW [...] in the left elbow or left forearm. [place], [place] LEFT ELBOW 3 VIEWS A ND [...] or retained radiopaque foreign body is identified. [place] No fracture or joint abnormality is identified in the left elbow or left forearm. [place] XR ELBOW LEFT (MIN 3 VIEWS)o [...] Dick Torres MD 12/13/19 Final result Normal [facility] XR ELBOW RIGHT (MIN 3 [...] Dick Torres MD 12/13/19 Final result Normal [facility] XR RADIUS ULNA LEFT (2 [...] Dick Torres MD 12/13/19 Final result Normal [facility] XR SHOULDER RIGHT (MIN 2 [...] Dick Torres MD 12/13/19 Final result Normal [facility] Vital Signs Date Time Vital Sign Value Performing Clinician Faci lity 12-13-2019 09:35-0400 BMI (Body Mass Index) 31.07 kg/m2 [place], [place] 12-13-2019 09:35-0400 Body Temperature 98.29 [degF] [place], [place] 12-13-2019 09:35-0400 Body weight 82.1 kg [place], [place] 12-13-2019 09:35-0400 BP Diastolic 80 mm[Hg] [place] 12-13-2019 09:35-0400 BP Systolic 133 mm[Hg] [place] 12-13-2019 09:35-0400 Height 162.6 cm [place] 12-13-2019 09:35-0400 Pulse (Heart Rate) 100 /min [place] 12-13-2019 09:35-0400 Pulse Oximetry 98 % [place] 12-13-2019 09:35-0400 Respiratory Rate 16 /min [place], [place] Encounters Encounter Date Encounter Type Care Provider Facility Start: 12-26-2023 End: 12-26-2023 ambulatory KAVITHA RICKEY Not Available Start: 12-19-2023 End: 12-19-2023 ambulatory KAVITHA RICKEY Not Available Start: 12-12-2023 End: 12-12-2023 ambulatory KAVITHA RICKEY Not Available Start: 11-28-2023 End: 11-28-2023 ambulatory MELLO BURGER Not Available Start: 11-13-2023 End: 11-13-2023 ambulatory [...] End: 12-13-2019 Emergency department patient visit DANNIE ROSENBEGR [facility] Start: 12-13-2019 End: 12-13-2019 Emergency department patient visit Curtis Harris Work Phone: [facility] ED Comment on above: Contusion [...] 12-30-2019 Influenza vaccination Flu vaccine (# 1) [place], [place] Start: 2013 Screening for malign ant neoplasm of cervix Cervical cancer screen [place], [place] Start: 09-17-2011 DTaP/Tdap/Td vaccine (1 - Tdap) DTaP/Tdap/Td vaccine (1 - Tdap) [place] Start: 09-17-2007 [facility] [place] [place] Start: 1993 Varicella vaccine (1 of 2 - 2-dose childhood series) Varicella vaccine (1 of 2 - 2-dose childhood series) [place], [place] Payers Date Payer Category Payer Medicaid [id number] 2022 Private Health Insurance [id number] 2014 Unknown 1990 Unknown [id number] 2.16.84 [id number] 1990 Unknown [id number] 2.16.84 0.1.150573.3.579.2.9 1990 Unknown [id number] 2.16.84 0.1.564868.3.579.2.1258 1990 Unknown [id number] 2.16.84 0.1.845825.3.579.2.1258 1990 Unknown [id number] 2.16.84 0.1.083219.3.579.2.9 1990 Unknown [id number] 2.16.84 0.1.697369.3.579.2.9 1990 Unknown [id number] 2.16.84 0.1.060353.3.579.2.9 1990 Unknown [id number] 2.16.84 0.1.420340.3.579.2.1258 1990 Unknown [id number] 2.16.84 0.1.154633.3.579.2.1258 1990 Unknown [id number] 2.16.84 0.1.477213.3.579.2.1258 1990 Unknown [id number] 2.16.84 0.1.042864.3.579.2.9 1990 Unknown [id number] 2.16.84 0.1.176357.3.579.2.1259 Social History Date Type Detail Facility Start: 12-13-2019 Tobacco smoking stat [facility] smoker [facility] Start: 12-13-2019 Tobacco use and exposure [facility] used [facility] Start: 12-13-2019 Alcohol intake Ex-drinker (finding) [facility] Sex Assigned At Not on file [facility] Exposure to SARS-CoV -2 (event) Not sure [place], [place] Summary Purpose Family History No Family History Records FoundNo Family History Records FoundNo Family History Records Found Advance Directives No Advanced Directives Records FoundDocuments on File Type Date 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 * Contusion (Faroese) * Bruises (Faroese) documented in this encounter Assessments Diagnosis Contusion of right shoulder, initial encounter Contusion of right elbow, initial encounter Contusion of left elbow, initial encounter Contusion of left forearm, initial encounter Additional Source Comments INFORMATION SOURCE (unrecogn ized section and content) DATE CREATED AUTHOR 12/13/2019 Heribertodany Victor Feliciano wally DATE CREATED AUTHOR AUTHOR'S ORGANIZ ATION 03/22/2020 [facility] DATE CREATED AUTHOR AUTHOR'S ORGANIZ ATION 12/28/2023 [facility] EPIC Reason for [...] BE BASED ON THE PRIMARY CLINICAL RECORDS. [employer] provides no warranty or guarantee of the accuracy or completeness of information in this document.
--- NOTE | 2024-01-02 16:23 | US_ITS ---
[address] [address] Patient Name: NORY ALONZO MRN: [id number] date: 1990 Sex: F Assigned Patient Location: US Current Patient Location: Accession/Order Number: [id number] Exam Date: 01/02/2024 16:29 Report Date: 01/03/2024 06:49 At the request of: KAVITHA LANG Procedure: US OB BPP w non-stress EXAMINATION: US OB BPP w non-stress HISTORY:GESTATIONAL DIABETES MELLITUS O24.419 COMPARISON: Ultrasound OB biophysical 12/24/2023 TECHNIQUE: Ultrasound biophysical profile was performed in the radiology department. BREATHING MOVEMENTS: 2 GROSS BODY MOVEMENTS: 2 TONE: 2 QUALITATIVE AMNIOTIC FLUID VOLUME: 2 PRESENTATION: CEPHALIC HEART RATE: 152.54 bpm AMNIOTIC FLUID VOLUME: 11.88 cm GESTATIONAL AGE: 38 weeks 1 day US/US OB BPP w non-stress IMPRESSION: Total biophysical profile score: 8 Electronically authenticated by: THERON NIEVES Date: 01/03/2024 06:49
[2024-01-02 16:58] VITALS: BP 134/80; PULSE 75
== END 2024-01-02 17:40 | disposition home or self-care (01) ==
LOC: US 07:07 → FBC 16:16
PROVIDERS: Visit Provider Obstetrics & Gynecology
DX: O24.419 Gestational diabetes mellitus in pregnancy, unspecified control (principal); Z3A.38 38 weeks gestation of pregnancy
CPT/HCPCS: 76818

== ENCOUNTER 2024-01-05 11:38 | Outpatient (OUT) | payer OTHER, MEDICAID, SELFPAY ==
--- OUTSIDE RECORDS SUMMARY | 2024-01-05 11:40 | XMS_ITS | CCD ---
Author Organization [facility] Care Team Providers Care Integrative Medicine Physician Name Role Phone DANNIE ROSENBERG Primary Care [...] 03-22-2020 Coding Summary. CODING DATE: 03/22/2020 FINAL [facility] STATUS: Home (Routine DC) PAYOR: Self Pay [...] Revised Date Saved: 03/22/2020 03:50 pm Normal [facility] SARS-CoV-2, NAAon 03-22-2020 SARS CORONAVIRUS 2 RNA:PRTHR:PT:RESPIRA TORY:ORD:PROBE.AMP.T AR Not Detected Not Detected [facility] Comment on above: Result Comment: This nucleic acid amplification test was developed and its performance characteristics determined by [employer]. Nucleic acid amplification tests include PCR and [...] detected) result in this assay. Performed at: [facility] [address] [facility] [place] [id number] MD Pawel Santillan Performed By: #### S ARS-CoV-2, VICTORINO #### [facility] [address] [place] [address] ED Note-Physicianon 03-21-20 ED Note-Physician Basic Information [...] ROSENBERG In 3 days 03/23/2020 EST [address] [place] [id number] [facility] (1) Additional Instructions: You should self quarantine [...] Cap-EC, 40 mg= 1 cap(s), Oral, Daily [place] 325 mg-5 mg oral tablet, See Instructions, PRN Percocet 325 mg-5 mg Tab, 1 to 2 tab(s), Oral, q4hr, PRN Allergies No Known Allergies Social History Alcohol Current, Beer, Wine, Liquor, 1-2 times per month, 03/20/2020 Substance Abuse Tobacco Lab Results No qualifying data available. Diagnostic Results No qualifying data available. Normal [facility] Comment on above: Result Comment: Elec tronically Signed By: Ben Vicente, Artem H\.br\Date and Time Signed: 03/21/20 07:19 EST Consent for Treatmenton 03-01 Consent for Treatment [id number] 0CD:127 Normal [facility] Discharge Instructionson Discharge Instructions [id number] 0CD:127 Normal [facility] ED Clinical Summaryon 2019 ED Clinical Summary [place] [id number] ED Clinical Summary Person Information Name: NORY ALONZO [place] Age: 29 Years : 1990 Sex: Female Language: Italian PCP: Montrell ROSENBERG MD Marital Status: Single [...] 03/20/2020 11:06:22 03/20/2020 11:06:22 03/20/2020 11:06:22 ADDRESS: [address] [place] [id number] PHYS DOC NOTES: MEDICAL INFORMATION: Prescriptions Given: Medications to Continue with No Changes Other Medications acetaminophen-hydrocod one (K[place] 325 mg-5 mg oral tablet) 1-2 tab(s) [...] Follow up: With: Address: When: Montrell ROSENBERG [address] [place] [address], [place] [phone] Business (1) In 3 days 03/23/2020 Comments: You should self quarantine until the coronavirus test is back and is negative. Return to the emergency room if you develop chest pain shortness of breath or any new symptoms. DIAGNOSIS: 1:Flu-like symptoms Normal [facility] ED Patient Education Noteon 03-20-2020 ED Patient [...] coughing. HOME CARE INSTRUCTIONS ? Only take jqkc-ejl-vfzaqhm or prescription medicines for pain, discomfort, diarrhea, [...] Document Reviewed: 08/21/2011 ExitCare? Patient Information ?[address] [employer]. This information is not intended to replace advice given to you by your health care provider. Make sure you discuss any questions you have with your health care provider. Normal [facility] ED Patient Summaryon 020 ED Patient Summary [address] [address] Patient Discharge Instructions Person Information Name: NORY ALONZO Age: 29 Years Arrival Date: 03/20/2020 09:00:39 Discharge Diagnosis: 1:Flu-like symptoms Primary Care Physician: Montrell ROSENBERG MD Provider Information Primary Provider: Artem Contreras M.D. Advanced Sand Buffer:None The exam and treatment you received in the Emergency Department were for an urgent problem and are not intended as complete care. It is important that you follow up with a doctor, nurse practitioner, or physician?s assistant broker for ongoing care. If your symptoms become worse or you do not improve as expected and you are unable to reach your usual health care provider, you should return to the Emergency Department. We are available 24 hours a day. NORY ALONZO has been given the following list of patient education materials, prescriptions and follow-up instructions: Follow-up Instructions: With: Address: When: Montrell ROSENBERG [address] [place] [id number] Business (1) In 3 days 03/23/2020 [...] opioids can be used to help relieve aruzrjmh-pq-mntywb pain and are often prescribed following a [...] be struggling with addiction, tell your health rn palliative care and ask for guidance or call [facility]?Lina National Helpline at 7-560-202-HELP. v Source: US Department of Health and Human Services/Center for Disease Control & Prevention [facility] Medications Given: Medication Dose Route No medications found. Medication Information: Medications to Continue with No Changes Other Medications acetaminophen-hydrocod one (K[place] 325 mg-5 mg oral tablet) 1-2 tab(s) [...] Information: Artur Victor Thank you for choosing [facility] Patient Education Materials: Viral Infections A [...] coughing. HOME CARE INSTRUCTIONS ? Only take aczw-zkr-klakqfk or prescription medicines for pain, discomfort, diarrhea, [...] Document Reviewed: 08/21/2011 ExitCare? Patient Information ?2014 [employer], [employer]. This information is not intended to replace advice given to you by your health care provider. Make sure you discuss any questions you have with your health care provider. CHERI Rabago COURTNEY A , have received the following patient education materials/instructions and have verbalized understanding: Patient Education Materials: Viral Infections Follow-up Instructions: With: Address: When: Montrell ROSENBERG [address] [place] [id number] Business (1) In 3 days 03/23/2020 Comments: You should self quarantine until the coronavirus test is back and is negative. Return to the emergency room if you develop chest pain shortness of breath or any new symptoms. Patient Signature Date Clinician/Nurse Signature ___ Date 03/20/2020 11:06:24 Normal [facility] Otheron 12-13-2019 RIGHT SHOULDER 3 VIE WS [...] tissue calcification or degenerative changes are identified. [place] No fracture or joint abnormality is identified in the right shoulder or right elbow. [place], [place] Elia, Mhpn Incoming Radiant Results From [employer] - 12/13/2019 11:10 AM EDT RIGHT SHOULDER [...] in the right shoulder or right elbow. [place] Elia, Mhpn Incoming Radiant Results From [employer]/Pacs - 12/13/2019 11:10 AM EDT LEFT ELBOW [...] in the left elbow or left forearm. [place] LEFT ELBOW 3 VIEWS A ND [...] or retained radiopaque foreign body is identified. [place] No fracture or joint abnormality is identified in the left elbow or left forearm. [place] XR ELBOW LEFT (MIN 3 VIEWS)o [...] Dick Torres MD 12/13/19 Final result Normal [facility] XR ELBOW RIGHT (MIN 3 VIEWS) [...] Dick Torres MD 12/13/19 Final result Normal [facility] XR RADIUS ULNA LEFT (2 VIEWS [...] Dick Torres MD 12/13/19 Final result Normal [facility] XR SHOULDER RIGHT (MIN 2 VIE [...] Dick Torres MD 12/13/19 Final result Normal [facility] Vital Signs Date Time Vital Sign Value Performing Clinician Faci lity 12-13-2019 09:35-0400 BMI (Body Mass Index) 31.07 [facility] [place] [place] 12-13-2019 09:35-0400 Body Temperature 98.29 [degF] [place], [place] 12-13-2019 09:35-0400 Body weight 82.1 kg [place], [place] 12-13-2019 09:35-0400 BP Diastolic 80 mm[Hg] [place], [place] 12-13-2019 09:35-0400 BP Systolic 133 mm[Hg] [place], [place] 12-13-2019 09:35-0400 Height 162.6 cm [place] 12-13-2019 09:35-0400 Pulse (Heart Rate) 100 /min [place], [place] 12-13-2019 09:35-0400 Pulse Oximetry 98 % [place], [place] 12-13-2019 09:35-0400 Respiratory Rate 16 /min [place] Encounters Encounter Date Encounter Type Care Provider Facility Start: 01-03-2024 End: 01-03-2024 ambulatory KAVITHA IRCKEY Not Available Start: 12-26-2023 End: 12-26-2023 ambulatory KAVITHA RICKEY [...] 12-13-2019 Emergency department patient visit DANNIE ROSENBERG [facility] Start: 12-13-2019 End: 12-13-2019 Emergency department patient visit Curtis Harris Work Phone: [facility] ED Comment on above: Contusion of [...] 12-30-2019 Influenza vaccination Flu vaccine (# 1) [place], [place] Start: 2013 Screening for malign ant neoplasm of cervix Cervical cancer screen [place] Start: 09-17-2011 DTaP/Tdap/Td vaccine (1 - Tdap) DTaP/Tdap/Td vaccine (1 - Tdap) [place] Start: 09-17-2007 [facility] [place] [place] Start: 1993 Varicella vaccine (1 of 2 - 2-dose childhood series) Varicella vaccine (1 of 2 - 2-dose childhood series) [place] Payers Date Payer Category Payer Medicaid [id number] 2022 Private Health Insurance [id number] 2014 Unknown 1992 Unknown [id number] 2.16.84 [id number] 1990 Unknown [id number] 2.16.84 0.1.221335.3.579.2.1258 1992 Unknown [id number] 2.16.84 0.1.217968.3.579.2.1258 1992 Unknown [id number] 2.16.84 0.1.624518.3.579.2.1258 1992 Unknown [id number] 2.16.84 0.1.735151.3.579.2.1258 1992 Unknown [id number] 2.16.84 0.1.187599.3.579.2.9 1992 Unknown [id number] 2.16.84 0.1.907727.3.579.2.1258 1992 Unknown [id number] 2.16.84 0.1.280072.3.579.2.1258 1992 Unknown [id number] 2.16.84 0.1.636562.3.579.2.1258 1992 Unknown [id number] 2.16.84 0.1.443337.3.579.2.1258 1992 Unknown [id number] 2.16.84 0.1.855097.3.579.2.1258 1992 Unknown [id number] 2.16.84 0.1.525389.3.579.2.1259 1992 Unknown [id number] 2.16.84 0.1.969069.3.579.2.1259 Social History Date Type Detail Facility Start: 12-13-2019 [facility] [place] Start: 12-13-2019 Tobacco use and exposure Never used [place] Start: 12-13-2019 Alcohol intake Ex-drinker (finding) [place] Sex Assigned At Not on file [place] Exposure to SARS-CoV -2 (event) Not sure [place] Summary Purpose Family History No Family History Records FoundNo Family History Records FoundNo Family History Records Found Advance Directives No Advanced Directives Records FoundDocuments on File Type Date Recorded Patient Wheel Truer Expl anation Advance Directives and Living Will Power of Stiff Neck Loader Discharge Instructions * Attachments The following attachments cannot be sent through Care Everywhere. * Contusion (Italian) * Bruises (Italian) documented in this encounter Assessments Diagnosis Contusion of right shoulder, initial encounter Contusion of right elbow, initial encounter Contusion of left elbow, initial encounter Contusion of left forearm, initial encounter Additional Source Comments INFORMATION SOURCE (unrecogn ized section and content) DATE CREATED AUTHOR 12/13/2019 HeribertoSalvatore lo DATE CREATED AUTHOR AUTHOR'S ORGANIZ ATION 03/22/2020 [facility] DATE CREATED AUTHOR AUTHOR'S ORGANIZ ATION 01/05/2024 [facility] dicwa Specialists EPIC Reason for Visit (unrecogniz ed section and content) Reason Comments Shoulder Pain right side- was in [facility] this AM and declined medical assistance - [...] BE BASED ON THE PRIMARY CLINICAL RECORDS. [employer]. provides no warranty or guarantee of the accuracy or completeness of information in this document.
[2024-01-05 13:00] VITALS: BP 132/82; PULSE 82
== END 2024-01-05 13:29 | disposition home or self-care (01) ==
LOC: FBCO 11:39 → FBC 12:54
PROVIDERS: Visit Provider Obstetrics & Gynecology
DX: O24.419 Gestational diabetes mellitus in pregnancy, unspecified control (principal)
CPT/HCPCS: 59025

== ENCOUNTER 2024-01-08 04:48 | Inpatient (IN) | payer OTHER, MEDICAID, SELFPAY ==
[2024-01-08] VITALS (50 sets, daily range): BP systolic 127–193; BP diastolic 63–104; PULSE 62–107; TEMP 36.1–36.9
--- OUTSIDE RECORDS SUMMARY | 2024-01-08 04:54 | XMS_ITS | CCD ---
Author Organization [facility] Care Team Providers Care Application Software Engineer Name Role Phone DANNIE ROSENBERG Primary Care [...] 03-22-2020 Coding Summary. CODING DATE: 03/22/2020 FINAL [facility] STATUS: Home (Routine DC) PAYOR: Self [...] Revised Date Saved: 03/22/2020 03:50 pm Normal [facility] SARS-CoV-2, NAAon 03-22-2020 SARS CORONAVIRUS 2 RNA:PRTHR:PT:RESPIRA TORY:ORD:PROBE.AMP.T AR Not Detected Not Detected [facility] Comment on above: Result Comment: This nucleic acid amplification test was developed and its performance characteristics determined by [employer]. Nucleic acid amplification tests include PCR and [...] detected) result in this assay. Performed at: [facility] [address] [facility] [place] [id number] MD Pawel Santillan Performed By: #### S ARS-CoV-2, VICTORINO #### [facility] [address] [place] [address] ED Note-Physicianon 03-21-20 ED Note-Physician Basic Information [...] ROSENBERG In 3 days 03/23/2020 EST [address] [place] [phone] [facility] (1) Additional Instructions: You should self [...] Cap-EC, 40 mg= 1 cap(s), Oral, Daily [place] 325 mg-5 mg oral tablet, See Instructions, PRN Percocet 325 mg-5 mg Tab, 1 to 2 tab(s), Oral, q4hr, PRN Allergies No Known Allergies Social History Alcohol Current, Beer, Wine, Liquor, 1-2 times per month, 03/20/2020 Substance Abuse Tobacco Lab Results No qualifying data available. Diagnostic Results No qualifying data available. Normal [facility] Comment on above: Result Comment: Elec tronically Signed By: Ben Vicente, Artem H\.br\Date and Time Signed: 03/21/20 07:19 EST Consent for Treatmenton 03-01 Consent for Treatment [id number] 0CD:127 Normal [facility] Discharge Instructionson Discharge Instructions [id number] 0CD:127 Normal [facility] ED Clinical Summaryon 2019 ED Clinical Summary [place] [id number] ED Clinical Summary Person Information Name: NORY ALONZO [place] Age: 29 Years : 1990 Sex: Female Language: Martiniquais PCP: Montrell ROSENBERG MD Marital Status: Single [...] 03/20/2020 11:06:22 03/20/2020 11:06:22 03/20/2020 11:06:22 ADDRESS: [address] [place] [id number] PHYS DOC NOTES: MEDICAL INFORMATION: Prescriptions Given: Medications to Continue with No Changes Other Medications acetaminophen-hydrocod one ([place] 325 mg-5 mg oral tablet) 1-2 tab(s) [...] Follow up: With: Address: When: Montrell ROSENBERG [address] [place] [address], [place] [phone] Business (1) In 3 days 03/23/2020 Comments: You should self quarantine until the coronavirus test is back and is negative. Return to the emergency room if you develop chest pain shortness of breath or any new symptoms. DIAGNOSIS: 1:Flu-like symptoms Normal [facility] ED Patient Education Noteon 03-20-2020 ED Patient [...] coughing. HOME CARE INSTRUCTIONS ? Only take tcan-grn-amazblh or prescription medicines for pain, discomfort, diarrhea, [...] Document Reviewed: 08/21/2011 ExitCare? Patient Information ?2014 [employer]. This information is not intended to replace advice given to you by your health care provider. Make sure you discuss any questions you have with your health care provider. Normal [facility] ED Patient Summaryon 020 ED Patient Summary [address] [address] Patient Discharge Instructions Person Information Name: NORY ALONZO Age: 29 Years Arrival Date: 03/20/2020 09:00:39 Discharge Diagnosis: 1:Flu-like symptoms Primary Care Physician: Montrell ROSENBERG MD Provider Information Primary Provider: Artem Contreras M.D. Advanced Traffic Division Commanding Officer:None The exam and treatment you received in the Emergency Department were for an urgent problem and are not intended as complete care. It is important that you follow up with a doctor, nurse practitioner, or physician?s regulatory assistant for ongoing care. If your symptoms [...] Follow-up Instructions: With: Address: When: Montrell ROSENBERG [address] [place] [address] Business (1) In 3 days 03/23/2020 [...] opioids can be used to help relieve uhusfjkb-no-zpncdi pain and are often prescribed following a [...] be struggling with addiction, tell your health day care attendant and ask for guidance or call [facility]?Lina National Helpline at 5-971-645-HELP. v Source: US Department of Health and Human Services/Center for Disease Control & Prevention [facility] Medications Given: Medication Dose Route No medications found. Medication Information: Medications to Continue with No Changes Other Medications acetaminophen-hydrocod one ([place] 325 mg-5 mg oral tablet) 1-2 tab(s) [...] Artur Victor Thank you for choosing [facility] Patient Education Materials: Viral Infections A [...] coughing. HOME CARE INSTRUCTIONS ? Only take xujd-uzo-heozaip or prescription medicines for pain, discomfort, diarrhea, [...] Document Reviewed: 08/21/2011 ExitCare? Patient Information ?2014 [employer], [employer]. This information is not intended to replace advice given to you by your health care provider. Make sure you discuss any questions you have with your health care provider. CHERI Rabago COURTNEY A , have received the following patient education materials/instructions and have verbalized understanding: Patient Education Materials: Viral Infections Follow-up Instructions: With: Address: When: Montrell ROSENBERG [address] [place] [id number] Business (1) In 3 days 03/23/2020 Comments: You should self quarantine until the coronavirus test is back and is negative. Return to the emergency room if you develop chest pain shortness of breath or any new symptoms. Patient Signature Date Clinician/Nurse Signature ___ Date 03/20/2020 11:06:24 Normal [facility] Otheron 12-13-2019 RIGHT SHOULDER 3 VIE WS [...] tissue calcification or degenerative changes are identified. [place], [place] No fracture or joint abnormality is identified in the right shoulder or right elbow. [place] Elia, Mhpn Incoming Radiant Results From [employer] - 12/13/2019 11:10 AM EDT RIGHT SHOULDER [...] in the right shoulder or right elbow. [place] Elia, Mhpn Incoming Radiant Results From [employer]/Pacs - 12/13/2019 11:10 AM EDT LEFT ELBOW [...] in the left elbow or left forearm. [place] LEFT ELBOW 3 VIEWS A ND [...] or retained radiopaque foreign body is identified. [place] No fracture or joint abnormality is identified in the left elbow or left forearm. [place] XR ELBOW LEFT (MIN 3 VIEWS)o [...] Torres MD 12/13/19 Final result Normal [facility] XR ELBOW RIGHT (MIN 3 VIEWS) [...] Torres MD 12/13/19 Final result Normal [facility] XR RADIUS ULNA LEFT (2 VIEWS [...] Torres MD 12/13/19 Final result Normal [facility] XR SHOULDER RIGHT (MIN 2 VIE [...] Torres MD 12/13/19 Final result Normal [facility] Vital Signs Date Time Vital Sign Value Performing Clinician Faci lity 12-13-2019 09:35-0400 BMI (Body Mass Index) 31.07 kg/[facility] [place] 12-13-2019 09:35-0400 Body Temperature 98.29 [degF] [place], [place] 12-13-2019 09:35-0400 Body weight 82.1 kg [place], [place] 12-13-2019 09:35-0400 BP Diastolic 80 mm[Hg] [place], [place] 12-13-2019 09:35-0400 BP Systolic 133 mm[Hg] [place], [place] 12-13-2019 09:35-0400 Height 162.6 cm [place], [place] 12-13-2019 09:35-0400 Pulse (Heart Rate) 100 /min [place], [place] 12-13-2019 09:35-0400 Pulse Oximetry 98 % [place], [place] 12-13-2019 09:35-0400 Respiratory Rate 16 /min [place] Encounters Encounter Date Encounter Type Care Provider Facility Start: 01-03-2024 End: 01-03-2024 ambulatory KAVITHA RICKEY Not Available Start: 12-26-2023 End: 12-26-2023 ambulatory KAVITHA RICKEY Not Available Start: 12-19-2023 End: 12-19-2023 ambulatory KAVITHA RICKEY Not Available Start: 12-12-2023 End: 12-12-2023 ambulatory KAVITHA RICKEY Not Available Start: 11-28-2023 End: 11-28-2023 ambulatory MELLO TAO Not Available Start: 11-13-2023 End: 11-13-2023 ambulatory MELLO TAO Not Available Start: 10-30-2023 End: 10-30-2023 ambulatory KAVITHA RICKEY Not Available Start: 10-17-2023 End: 10-17-2023 ambulatory KAVIHTA RICKEY Not Available Start: 09-17-2023 End: 09-17-2023 ambulatory KAVITHA RICKEY Not Available Start: 08-16-2023 End: 08-16-2023 ambulatory MELLO TAO Not Available Start: 07-19-2023 End: 07-19-2023 ambulatory KAVITHA RICKEY Not Available Start: 06-21-2023 End: 06-21-2023 ambulatory KAVITHA RICKEY Not Available Start: 12-13-2019 End: 12-13-2019 Emergency department patient visit DANNIE ROSENBERG [facility] Start: 12-13-2019 End: 12-13-2019 Emergency department patient visit Curtis Harris Work Phone: [facility] ED Comment on above: Contusion of [...] 12-30-2019 Influenza vaccination Flu vaccine (# 1) [place] Start: 2013 Screening for malign ant neoplasm of cervix Cervical cancer screen [place] Start: 09-17-2011 DTaP/Tdap/Td vaccine (1 - Tdap) DTaP/Tdap/Td vaccine (1 - Tdap) [place] Start: 09-17-2007 [facility] [place] [place] Start: 1993 Varicella vaccine (1 of 2 - 2-dose childhood series) Varicella vaccine (1 of 2 - 2-dose childhood series) [place] Payers Date Payer Category Payer Medicaid [id number] 2022 Private Health Insurance [id number] 2014 Unknown 1990 Unknown [id number] 2.16.84 0.1.312954.3.579.2.174 1992 Unknown [id number] 2.16.84 0.1.170845.3.579.2.1258 1992 Unknown [id number] 2.16.84 0.1.802448.3.579.2.1258 1992 Unknown [id number] 2.16.84 0.1.651191.3.579.2.1258 1992 Unknown [id number] 2.16.84 0.1.102747.3.579.2.1258 1992 Unknown [id number] 2.16.84 0.1.830599.3.579.2.9 1992 Unknown [id number] 2.16.84 0.1.783316.3.579.2.1258 1992 Unknown [id number] 2.16.84 0.1.441704.3.579.2.1258 1992 Unknown [id number] 2.16.84 0.1.258494.3.579.2.1258 1992 Unknown [id number] 2.16.84 0.1.794945.3.579.2.1258 1992 Unknown [id number] 2.16.84 0.1.571037.3.579.2.1258 1992 Unknown [id number] 2.16.84 0.1.531018.3.579.2.1259 1992 Unknown [id number] 2.16.84 0.1.352738.3.579.2.1259 Social History Date Type Detail Facility Start: 12-13-2019 [facility] Start: 12-13-2019 Tobacco use and exposure Never used [place] Start: 12-13-2019 Alcohol intake Ex-drinker (finding) [place] Sex Assigned At Not on file [place] Exposure to SARS-CoV -2 (event) Not sure [place] Summary Purpose Family History No Family History Records FoundNo Family History Records FoundNo Family History Records Found Advance Directives No Advanced Directives Records FoundDocuments on File Type Date Recorded 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 * Contusion (Martiniquais) * Bruises (Martiniquais) documented in this encounter Assessments Diagnosis Contusion of right shoulder, initial encounter Contusion of right elbow, initial encounter Contusion of left elbow, initial encounter Contusion of left forearm, initial encounter Additional Source Comments INFORMATION SOURCE (unrecogn ized section and content) DATE CREATED AUTHOR 12/13/2019 HeribertoSalvatore lo DATE CREATED AUTHOR AUTHOR'S ORGANIZ ATION 03/22/2020 [facility] DATE CREATED AUTHOR AUTHOR'S ORGANIZ ATION 01/05/2024 [facility] dicnh Specialists EPIC Reason for Visit (unrecogniz ed section and content) Reason Comments Shoulder Pain right side- was in [facility] this AM and declined medical assistance [...] BE BASED ON THE PRIMARY CLINICAL RECORDS. [employer]. provides no warranty or guarantee of the accuracy or completeness of information in this document.
[2024-01-08] MEDS: 0.9 % SODIUM CHLORIDE 1,000 ML 125 ML IV (05:39)
[2024-01-08] MEDS: OXYTOCIN/0.9 % SODIUM CHLORIDE 10 UNITS/500 ML PLAST..BAG 6 UNIT IV (05:40)
[2024-01-08 05:47] LABS: Hematocrit 29.5 % (36.0-48.0); Hemoglobin 9.6 g/dL (12.0-16.0); Mean Corpuscular HGB Conc 32.5 g/dL (29.9-35.2); Mean Corpuscular Hemoglobin 27.6 pg (26.7-34.0); Mean Corpuscular Volume 84.8 fL (81.0-99.0); Platelet Count 144 10^3/uL (150-450); Red Blood Count 3.48 10^6/uL (4.20-5.40); White Blood Count 4.8 10^3/uL (4.0-11.0)
[2024-01-08 05:57] LABS: Amphetamine Screen Urine NEGATIVE (NEGATIVE); Barbiturates Screen Urine NEGATIVE (NEGATIVE); Benzodiazepines Screen Urine NEGATIVE (NEGATIVE); Buprenorphine Screen Urine NEGATIVE (NEGATIVE); Cannabinoid Screen Urine POSITIVE (NEGATIVE); Cocaine Screen Urine NEGATIVE (NEGATIVE); Methadone Screen Urine NEGATIVE (NEGATIVE); Methamphetamines Screen Urine NEGATIVE (NEGATIVE); Opiate Screen Urine NEGATIVE (NEGATIVE); Oxycodone Screen Urine NEGATIVE (NEGATIVE); Phencyclidine Screen Urine NEGATIVE (NEGATIVE); Tricyclic Antidepressant Urine NEGATIVE (NEGATIVE)
[2024-01-08] MEDS: 0.9 % SODIUM CHLORIDE 1,000 ML 1000 ML IV (10:01)
[2024-01-08] MEDS: ROPIVACAINE HCL/PF 400 MG/200 ML PREMIX 6 MG EPIDURAL (10:14)
[2024-01-08] MEDS: NALBUPHINE HCL 10 MG/ML AMPULE IV (12:15)
[2024-01-08] MEDS: OXYTOCIN/0.9 % SODIUM CHLORIDE 20 UNITS/1,000 ML PLAST..BAG 125 UNIT IV (15:30)
--- NOTE | 2024-01-08 15:36 | PM.OBPRCVD ---
Procedure Intrapartal events: None Induction method: per pitocin protocol Delivery augmentation: rupture of membranes and pitocin Delivery monitor: external FHT and external uterine Route of delivery: Episiotomy Description: midline L&D Laceration Description: periurethral - 2nd degree Estimated blood loss (mL): 250 Anesthesia type: Epidural Disposition: PACU Delivery date: 01/08/24 Gender: female presentation: vertex Placental delivery description: Spontaneous cord description: 3 Vessels
[2024-01-08] MEDS: GLYCERIN/WITCH HAZEL PADS 1 PAD TOPICAL (16:02)
[2024-01-08] MEDS: BENZOCAINE/MENTHOL 85 GRAM SPRAY BOTTLE 1 APPLIC TOPICAL (16:02)
[2024-01-08] MEDS: IBUPROFEN 600 MG TABLET PO ×2 (16:32→22:28)
--- NOTE | 2024-01-08 21:49 | PC.NURSE ---
Addendum entered by Manny Tabares 01/08/24 22:13: Correction- QBL is 945ml in total with 250 EBL from delivery for total of 1,195ml. Original Note: Pt calls out stating she feels more blood gushing from vagina; RN in to assess. Fundus is right of midline, 1/U, and baseball sized clot expelled with large gush of blood. Fundus becomes firm with massage. Pad weighed and QBL 252ml. RN remains at bedside doing continual fundal assessment where small trickle continues with massaging. Pt not experiencing any symptoms such as dizziness or SOB. Idris Malik RN calls Dr. Mata at 2038 and requests presence. At 2041 pad changed after golf ball sized clot is expressed and QBL is 131ml. Dr. Mata arrives at bedside at 2054 where he manually removes softball sized clots; pad and chux QBL is 425ml. Fundus is UE/midline/firm after reassessment with no further bleeding. QBL including EBL from delivery totals 945ml.
[2024-01-09] VITALS (10 sets, daily range): BP systolic 112–158; BP diastolic 67–88; PULSE 80–99; TEMP 36–36.8
[2024-01-09 06:18] LABS: Basophils Percent Auto 0.3 % (0.2-2.0); Hematocrit 24.3 % (36.0-48.0); Immature Granulocytes Abs Auto 0.03 10^3/uL (0.00-0.03); Immature Granulocytes Pct Auto 0.3 % (0.0-0.5); Lymphocytes Absolute Auto 2.8 10^3/uL (1.2-3.8); Lymphocytes Percent Auto 25.7 % (20.5-60.0); Mean Corpuscular HGB Conc 32.9 g/dL (29.9-35.2); Mean Corpuscular Hemoglobin 27.1 pg (26.7-34.0); Mean Corpuscular Volume 82.4 fL (81.0-99.0); Mean Platelet Volume 11.7 fL (9.5-13.5); Monocytes Absolute Auto 0.6 10^3/uL (0.3-0.8); Monocytes Percent Auto 5.1 % (1.7-12.0); Neutrophils Absolute Auto 7.4 10^3/uL (1.4-6.5); Neutrophils Percent Auto 68.6 % (43.0-75.0); Platelet Count 142 10^3/uL (150-450); Red Blood Count 2.95 10^6/uL (4.20-5.40); Red Cell Distribution Width 12.9 % (11.0-15.0); White Blood Count 10.8 10^3/uL (4.0-11.0)
--- NOTE | 2024-01-09 07:41 | PM.OBPN ---
OB - PN: Subj Subjective Patient comments: no complaints and pain well controlled [place] status: doing well Exam Constitutional Vital Signs, click to edit/add: Last Vital Signs Temp 96.8 F L 01/09/24 01:29 Pulse 80 01/09/24 01:29 Resp 16 01/09/24 01:30 BP 158/83 H 01/09/24 01:29 O2 Del Method Room Air 01/09/24 01:30 Documenting provider has reviewed patient's vital signs: yes Common normals: no apparent distress Respiratory Common normals: clear to auscultation bilaterally Cardio Common normals: regular rate and regular rhythm GI Common normals: Normal to inspection, nondistended, normoactive bowel sounds present Extremity Common normals: no calf tenderness Results Labs Labs: Short CBC 01/09/24 Range/Units 06:09 WBC 10.8 (4.0-11.0) 10^3/uL Hgb 8.0 L (12.0-16.0) g/dL Hct 24.3 L (36.0-48.0) % Plt Count 142 L (150-450) 10^3/uL OB - PN: A/P Plan - Vaginal Delivery day: 1 Plan: routine care, discharge home and follow up 6 weeks Time Spent with Patient Time: Total time spent is greater than 50% in coordination of care (as documented) at patient's floor/unit and/or counseling patient: Total time spent with greater than 50% in coordination of care (as documented) at patient's floor/unit and/or counseling patient: less than 15 minutes
[2024-01-09] MEDS: IBUPROFEN 600 MG TABLET PO ×3 (08:13→23:53)
[2024-01-09] MEDS: DOCUSATE SODIUM 100 MG CAPSULE PO ×2 (08:14→21:37)
[2024-01-09] MEDS: LABETALOL HCL 200 MG TABLET PO ×2 (08:14→21:37)
--- NOTE | 2024-01-09 14:01 | SWNOTE1 ---
SW consulted due to positive THC drug screen. Pt and signficant other in room. Pt did eat a gummie to help with nausea and to help make her comfortable. Pt does not have a medical marijuana card. Pt does not plan on using once she is home. Pt does have an 11 year old daughter in the home as well. Pt has everything she needs at home for baby. Pt and sig. other are appropriate with baby. They do have good support at home as well. SW spoke about post depression and the signs. Pt is aware. At this time no other concerns. SW advised pt and sig. other that SW is mandated reported and has to make a call to [facility]. They did not have any further questions at this time. SW called and made report to [facility]. HIPAA form filled out and sent to
--- NOTE | 2024-01-10 07:39 | P.OBPN_ITS ---
OB - PN: Subj Subjective Patient comments: no complaints and pain well controlled [place] status: doing well Exam Constitutional Vital Signs, click to edit/add: Last Vital Signs Temp 97.7 F 01/09/24 23:47 Pulse 87 01/09/24 23:47 Resp 16 01/09/24 23:48 BP 133/87 01/09/24 23:47 O2 Del Method Room Air 01/09/24 23:48 Documenting provider has reviewed patient's vital signs: yes Common normals: no apparent distress Respiratory Common normals: clear to auscultation bilaterally Cardio Common normals: regular rate and regular rhythm GI Common normals: Normal to inspection, nondistended, normoactive bowel sounds present Extremity Common normals: no calf tenderness OB - PN: A/P Plan - Vaginal Delivery day: 2 Plan: routine care, discharge home and follow up 6 weeks Time Spent with Patient Time: Total time spent is greater than 50% in coordination of care (as documented) at patient's floor/unit and/or counseling patient: Total time spent with greater than 50% in coordination of care (as documented) at patient's floor/unit and/or counseling patient: less than 15 minutes
[2024-01-10 08:00] VITALS: TEMP 36.4
[2024-01-10 08:04] VITALS: BP 141/84; PULSE 80
[2024-01-10] MEDS: DOCUSATE SODIUM 100 MG CAPSULE PO (08:10)
[2024-01-10] MEDS: LABETALOL HCL 200 MG TABLET PO (08:10)
[2024-01-10] MEDS: IBUPROFEN 600 MG TABLET PO (08:39)
[2024-01-10 12:00] VITALS: BP 130/78; PULSE 96
[2024-01-12 17:08] LABS: Cannabinoid Positive (.); Carboxy THC Conf, MS, UR 44 ng/mL (Cutoff=10)
== END 2024-01-10 12:15 | disposition home or self-care (01) | DRG 806 ==
PROVIDERS: Admitting Provider Obstetrics & Gynecology; Visit Provider Obstetrics & Gynecology
DX: O24.439 Gestational diabetes mellitus in the puerperium, unspecified control (principal); O99.324 Drug use complicating childbirth; Z37.0 Single live birth; Z3A.39 39 weeks gestation of pregnancy; O71.82 Other specified trauma to perineum and vulva
CPT/HCPCS: 36415; 51702; 59050; 59410; 80307; 80349; 85025; 85027; 86850; 86900; 86901; 96365; 96366; 96368; 96375; J0665; J2300; J2795; J3010